=== PATIENT | female | born 1940 | race Two or more races ===

== ENCOUNTER 2024-06-11 06:24 | Inpatient (IN) | payer OTHER, MEDICAID ==
[~2024-06-11] VITALS: Ht 162.6 cm; Wt 50.0 kg
[~2024-06-11 06:24] MED LIST: BIMA0.01 EACHEYE; BRIM0.1S3 EACHEYE; CEFD300C2 PO; DORZ2SOL18 EACHEYE; DOXY100C4 PO; HYDR25TA4 PO; LISI2.5T47 PO; PRED10TA PO; PRED1SUS4 RIGHTEYE; TIMO0.5S28 EACHEYE
--- NOTE | 2024-06-11 07:01 | ED.PDOC ---
History of Present Illness HPI Comments 79 y/o F is BIBA for c/o abdominal pain and nausea, today. Per EMS report, patient endorses on unprovoked and sudden onset of non-radiating, LLQ abdominal pain w/associated nausea at around 0000, this morning. Patient is stated by EMS to have been bed-bound and cared for by caretakers since her left-knee Sx she had, recently. Patient reports no additional relevant or pertinent Hx, such as recent sick contact or spoiled food intake. She denies having any vomiting, diarrhea, urinary symptoms, fever, chills, or other associated symptoms or modifiers at this time. Chief Complaint: Nausea/Vomiting Time Seen by MD: 06:10 Reviewed Notes: Nurses Notes, Medications, Allergies Allergies: Coded Allergies: NO KNOWN ALLERGIES (Unverified , 06/11/24) Home Meds Reported Medications Metoprolol Succinate (Metoprolol Succinate Er) 25 Mg Tab, 1 TAB PO DAILY 06/11/24 Aspirin (Aspirin Low Dose) 81 Mg Tab, 1 TAB PO DAILY 06/11/24 Atorvastatin Calcium (ATORVASTATIN CALCIUM) 20 Mg Tab, 1 TAB PO DAILY 06/11/24 Lisinopril (Lisinopril) 10 Mg Tab, 1 TAB PO DAILY 06/11/24 Information Source: Patient, Emergency Med Personnel Mode of Arrival: EMS Severity: Moderate Timing: Hours Duration: Since onset Prehospital treatment: 12 Lead EKG, Transportation Maintenance Operator Past Medical History PAST MEDICAL HISTORY: Arthritis, HTN Past Medical History (Other): unspecified "heart problems" Surgical History (Other): left-knee Sx FRONT MAN History: Denies all FRONT MAN Hx Family History Family History: Unknown Social History Smoker: Non-Smoker Alcohol: Denies ETOH Use Drugs: Denies Drug Use Lives In: Home, Assisted Care Gastrointestinal: reports: abdominal pain, nausea All Other Systems: Reviewed and Negative (negative unless otherwise stated above or in HPI) Physical Exam General Appearance: Moderate Distress HEENT: Normal ENT Inspection, Pharynx Normal, TMs Normal Neck: Full Range of Motion, Non-Tender, Normal, Normal Inspection Respiratory: Chest Non-Tender, Lungs Clear, No Accessory Muscle Use, No Respiratory Distress, Normal Breath Sounds Cardiovascular: No Edema, No JVD, No Murmur, No Gallop, Normal Peripheral Pulses, Regular Rate/Rhythm Breast Exam: Deferred Gastrointestinal: No Organomegaly, Non Tender, No Pulsatile Mass, Normal Bowel Sounds, Soft Genitalia: Deferred Pelvic: Deferred Rectal: Deferred Extremities: Decreased range of motion Musculoskeletal : Apperance: Normal Neurologic: Alert Cerebellar Function: NOT DONE Reflexes: NOT DONE Skin: Normal Color Peripheral Pulses: 3+ Radial (R), 3+ Radial (L) Lymphatic: No Adenopathy Was a procedure done? Was a procedure done?: No Differential Dx Considerations may include: diverticulitis, ovarian torsion, ovarian cysts, PID, UTI X-Ray, Labs, Meds, VS Vital Signs Date Time Temp Pulse Resp B/P (MAP) Pulse Ox O2 Delivery O2 Flow Rate FiO2 06/11/24 10:23 82 12 129/76 (93) 98 06/11/24 06:35 97.5 82 16 139/84 (102) 100 06/11/24 06:27 78 Lab Test 06/11/24 09:40 Range/Units White Blood Count 16.6 H 4.4-10.8 10^3/uL Red Blood Count 5.39 H 4.0-5.20 10^6/uL Hemoglobin 14.7 12.2-16.2 g/dL Hematocrit 45.3 36.0-46.0 % Mean Corpuscular Volume 84.1 80.0-100.0 fL Mean Corpuscular Hemoglobin 27.2 L 28.0-32.0 pg Mean Corpuscular Hemoglobin Concent 32.3 32.0-36.0 g/dL Red Cell Distribution Width 15.4 H 11.8-14.3 % Platelet Count 405 140-450 10^3/uL Mean Platelet Volume 7.9 6.9-10.8 fL Neutrophils (%) (Auto) 92.7 H 37.0-80.0 % Lymphocytes (%) (Auto) 3.3 L 10.0-50.0 % Monocytes (%) (Auto) 3.8 0.0-12.0 % Eosinophils (%) (Auto) 0.0 0.0-7.0 % Basophils (%) (Auto) 0.2 0.0-2.0 % Neutrophils # (Auto) 15.4 H 1.6-8.6 10 ^3/uL Lymphocytes # (Auto) 0.5 0.4-5.4 10 ^3/uL Monocytes # (Auto) 0.6 0-1.3 10 ^3/uL Eosinophils # (Auto) 0 0-0.8 10 ^3/uL Basophils # (Auto) 0 0-0.2 10 ^3/uL Nucleated Red Blood Cells 0.0 % Sodium Level 137 136-145 mmol/L Potassium Level 3.0 L 3.5-5.1 mmol/L Chloride Level 102 98-107 mmol/L Carbon Dioxide Level 22 20-31 mmol/L Anion Gap 13 5-15 Blood Urea Nitrogen 25 H 9-23 mg/dL Creatinine 0.61 0.550-1.02 mg/dL Glomerular Filtration Rate Calc 91 >90 mL/min BUN/Creatinine Ratio 41.0 H 10.0-20.0 Serum Glucose 127 H 74-106 mg/dL Hemoglobin A1c 5.0 <5.7 % A1C Calcium Level 10.4 8.7-10.4 mg/dL Lipase 1140 H 12-53 U/L Current Medications Medications (Trade) Dose Ordered Sig/Cristofer Route Start Time Stop Time Status Last Admin Acetaminophen/ Hydrocodone Bitart ([place] 10/325MG Tab) 1 tab ONCE ONCE PO 06/11/24 12:00 06/11/24 12:01 DC 06/11/24 11:56 Potassium Bicarbonate (Klor-Con/Ef) 50 meq ONCE ONCE PO 06/11/24 12:00 06/11/24 12:01 DC 06/11/24 12:00 Sodium Chloride 1,000 ml @ 1,000 mls/hr Q1H ONCE IV 06/11/24 15:00 06/11/24 15:59 DC 06/11/24 15:00 Ceftriaxone Sodium 50 ml @ 100 mls/hr ONCE ONCE IV 06/11/24 15:00 06/11/24 15:29 DC 06/11/24 16:49 Metronidazole 100 ml @ 100 mls/hr ONCE ONCE IV 06/11/24 15:00 06/11/24 15:59 DC 06/11/24 16:48 Morphine Sulfate 2 mg ONCE ONCE IV 06/11/24 15:00 06/11/24 15:01 DC 06/11/24 16:47 Ondansetron HCl (Zofran) 4 mg ONCE ONCE IV 06/11/24 15:00 06/11/24 15:01 DC 06/11/24 16:46 Patient alert. Bed ridden. Vitals stable. Answering all questions. Has been having abdominal discomfort. Establish intravenous access. Was given fluids. Reviewed her previous visit. Explained to the patient. Continue cardiac monitoring. [place] [id number] Ph: [phone] DIAGNOSTIC IMAGING Diagnostic Imaging Report : [id number] Signed PATIENT: KAIT OLIVAS ACCT: [id number] UNIT: [id number] : 1940 LOC: ER ROOM / BED: / AGE / SEX: 83 / F ADM STATUS: REG ER SERVICE 1152 ORDERING PHYSICIAN: BK PACHECO MD PROCEDURE(s): ABPL - CT AB PEL WO CON-NO ORAL OR IV REASON: colitis ORDER NUMBER(s): [id number], ACCESSION NUMBER(s): [id number] CLINICAL INFORMATION: 83 years old, Female; colitis. TECHNIQUE: Axial CT images of the abdomen and pelvis were obtained without IV contrast. Coronal and sagittal reformatted images were obtained, reviewed, and stored. Evaluation of the parenchymal organs is limited without IV contrast. Evaluation of the bowel and mesentery is limited without oral contrast. All CT scans at this medical facility are performed using dose modulation techniques as appropriate to a performed exam including the following: Automated exposure control was utilized; adjustment of the MA and/or KV according to patient size; and use of iterative reconstruction technique. CTDIvol = 6.33 mGy DLP = 315.55 mGy-cm COMPARISON: None FINDINGS: Examination is limited due to motion artifact, lack of intravenous and oral contrast, and beam hardening artifact from the patient being scanned with arms at sides and left hand overlying the lower abdomen. Lung bases: Small right pleural effusion with overlying atelectasis. Liver: Grossly unremarkable in its noncontrast enhanced appearance. No abnormal density or focal lesion identified. Biliary: Calcified gallstone in the gallbladder. Spleen: Unremarkable. Pancreas: Moderate peripancreatic inflammatory stranding and ill-defined fluid. No definite organized fluid collection adjacent to the pancreas given the limitations of the examination. Adrenal glands: Grossly unremarkable appearance of the right adrenal gland. Left adrenal gland is not well visualized. Kidneys: No hydronephrosis. No renal or ureteral calculi. Aorta/Vascular: Dense atherosclerotic calcification. No abdominal aortic aneurysm. Retroperitoneum: Grossly unremarkable given the limitations of the exam. Bowel/mesentery: No small bowel obstruction. Moderate gastric distension with fluid in the stomach. Appendix is not visualized. There is a large amount of dense stool in the rectum. Inflammatory stranding in the left upper abdomen adjacent to the splenic flexure of the colon, appears to be coursing from the adjacent pancreatic tail. Secondary inflammation of the splenic flexure of the colon not excluded. Pelvic organs: Grossly unremarkable. Bladder: Unremarkable. No mass. Abdominal wall: No mass or hernia. Bones: No acute fracture or suspicious intraosseous lesion. Arthritic changes in the left hip and moderate arthritic changes in the right hip. Multilevel degenerative disc disease throughout the lumbar spine with disc space narrowing, endplate sclerosis, and endplate spurring. IMPRESSION: 1. Limited examination for the reasons described above. 2. Inflammatory changes adjacent to the pancreas, suspected acute pancreatitis in the appropriate clinical setting. 3. There is also stranding adjacent to the splenic flexure of the colon, likely coursing from the adjacent peripancreatic inflammatory changes. Secondary i nflammation of the splenic flexure of the colon not excluded. 4. Large amount of dense stool in the rectum. Fecal impaction not excluded. 5. Cholelithiasis. 6. Small right pleural effusion with overlying atelectasis. 7. Moderate gastric distention with fluid. 8. Additional findings as detailed above. ATED BY: QUAN SMITH DO DICTATED DATE/TIME: 06/11/241339 SIGNED BY: QUAN SMITH DO SIGNED DATE/TIME: 06/11/241339 CC: Time of 1ST Reevaluation: 06:40 Reevaluation 1ST: Unchanged Patient Education/Counseling: Diagnosis, Treatment Family Education/Counseling: No Family Present Additional Information The following tests were ordered, and results were reviewed by me: BMP, CBC, EKG, UA Additional Information was gathered from interviewing the following independent historians: EMT I reviewed and agreed with the following test results read by other providers: CXR I discussed treatment and results with medical personnel Departure 1 Departure Time of Disposition: 07:50 Impression: Primary Impression: Failure to thrive Qualified Codes: R62.7 - Adult failure to thrive Disposition: ADMITTED INPATIENT Admit to: Med Surg Condition: Guarded Critical Care Note Critical Care Time?: No Stability Stability form required: No Heart Score Heart Score: Heart Score Response (Comments) Value History N/A 0 EKG N/A 0 Age N/A 0 Risk Factors N/A 0 Troponin N/A 0 Total 0 I personally scribed for BK PACHECO MD ([email or web address]) on 06/11/24 at 07:01. Electronically submitted by Beni Hamilton ([email or web address]). I personally scribed for BK PACHECO MD ([email or web address]) on 06/11/24 at 16:59. Electronically submitted by Beni Hamilton ([email or web address]). BK PACHECO MD Jun 11, 2024 07:01
--- NOTE | 2024-06-11 09:04 | DVH ---
CHEST RADIOGRAPH Indication: sob Technique: Single frontal view of the chest was obtained Comparison: None FINDINGS: Lines and Tubes: None Lungs: Elevated right hemidiaphragm. No focal consolidation. Pleura: No effusion. No pneumothorax. Cardiomediastinal contours: Tortuous thoracic aorta. The heart is not enlarged. Bones: No acute osseous abnormality. Bilateral glenohumeral joint arthrosis. Gaseous distention of the stomach. IMPRESSION: 1. No acute cardiopulmonary disease.
[2024-06-11 09:50] LABS: Basophils # (auto) 0 10 ^3/uL (0-0.2); Basophils % (auto) 0.2 % (0.0-2.0); Eosinophils # (auto) 0 10 ^3/uL (0-0.8); Hematocrit 45.3 % (36.0-46.0); Hemoglobin 14.7 g/dL (12.2-16.2); Lymphocytes # (auto) 0.5 10 ^3/uL (0.4-5.4); Lymphocytes % (auto) 3.3 % (10.0-50.0); Mean Corpuscular Hemoglobin 27.2 pg (28.0-32.0); Mean Corpuscular Hgb Conc. 32.3 g/dL (32.0-36.0); Mean Corpuscular Volume 84.1 fL (80.0-100.0); Monocytes # (auto) 0.6 10 ^3/uL (0-1.3); Monocytes % (auto) 3.8 % (0.0-12.0); Neutrophils # (auto) 15.4 10 ^3/uL (1.6-8.6); Neutrophils % (auto) 92.7 % (37.0-80.0); Platelet Count (auto) 405 10^3/uL (140-450); Red Blood Cells 5.39 10^6/uL (4.0-5.20); Red Cell Distribution Width 15.4 % (11.8-14.3); White Blood Cell 16.6 10^3/uL (4.4-10.8)
[2024-06-11 10:11] LABS: Chloride 102 mmol/L (98-107); Sodium 137 mmol/L (136-145)
[2024-06-11 10:12] LABS: Anion Gap 13 (5-15); Carbon Dioxide 22 mmol/L (20-31)
[2024-06-11 10:13] LABS: Calcium 10.4 mg/dL (8.7-10.4)
[2024-06-11 10:28] LABS: Blood Urea Nitrogen 25 mg/dL (9-23); Glucose 127 mg/dL (74-106)
[2024-06-11] MEDS: HYDROcodone-ACET 10/325MG TAB PO ONE (11:56)
[2024-06-11] MEDS: POTASSIUM EFFERVESENT TAB 25 MEQ PO ONE (12:00)
--- NOTE | 2024-06-11 13:42 | DVH ---
CLINICAL INFORMATION: 83 years old, Female; colitis. TECHNIQUE: Axial CT images of the abdomen and pelvis were obtained without IV contrast. Coronal and sagittal reformatted images were obtained, reviewed, and stored. Evaluation of the parenchymal organs is limited without IV contrast. Evaluation of the bowel and mesentery is limited without oral contra st. All CT scans at this medical facility are performed using dose modulation techniques as appropria te to a performed exam including the following: Automated exposure control was utilized; adjustment o f the MA and/or KV according to patient size; and use of iterative reconstruction technique. CTDIvol = 6.33 mGy DLP = 315.55 mGy-cm COMPARISON: None FINDINGS: Examination is limited due to motion artifact, lack of intravenous and oral contrast, and b eam hardening artifact from the patient being scanned with arms at sides and left hand overlying the lower abdomen. Lung bases: Small right pleural effusion with overlying atelectasis. Liver: Grossly unremarkable in its noncontrast enhanced appearance. No abnormal density or focal les ion identified. Biliary: Calcified gallstone in the gallbladder. Spleen: Unremarkable. Pancreas: Moderate peripancreatic inflammatory stranding and ill-defined fluid. No definite organized fluid collection adjacent to the pancreas given the limitations of the examination. Adrenal glands: Grossly unremarkable appearance of the right adrenal gland. Left adrenal gland is not well visualized. Kidneys: No hydronephrosis. No renal or ureteral calculi. Aorta/Vascular: Dense atherosclerotic calcification. No abdominal aortic aneurysm. Retroperitoneum: Grossly unremarkable given the limitations of the exam. Bowel/mesentery: No small bowel obstruction. Moderate gastric distension with fluid in the stomach. A ppendix is not visualized. There is a large amount of dense stool in the rectum. Inflammatory strandi ng in the left upper abdomen adjacent to the splenic flexure of the colon, appears to be coursing fro m the adjacent pancreatic tail. Secondary inflammation of the splenic flexure of the colon not exclu ded. Pelvic organs: Grossly unremarkable. Bladder: Unremarkable. No mass. Abdominal wall: No mass or hernia. Bones: No acute fracture or suspicious intraosseous lesion. Arthritic changes in the left hip and mod erate arthritic changes in the right hip. Multilevel degenerative disc disease throughout the lumbar spine with disc space narrowing, endplate sclerosis, and endplate spurring. IMPRESSION: 1. Limited examination for the reasons described above. 2. Inflammatory changes adjacent to the pancreas, suspected acute pancreatitis in the appropriate cli nical setting. 3. There is also stranding adjacent to the splenic flexure of the colon, likely coursing from the adj acent peripancreatic inflammatory changes. Secondary inflammation of the splenic flexure of the colon not excluded. 4. Large amount of dense stool in the rectum. Fecal impaction not excluded. 5. Cholelithiasis. 6. Small right pleural effusion with overlying atelectasis. 7. Moderate gastric distention with fluid. 8. Additional findings as detailed above.
[2024-06-11] MEDS: SODIUM CHLORIDE 0.9% 1,000 ML IV ONE (15:00)
[2024-06-11] MEDS ORDERED: VANCOMYCIN PER PHARMACY 0 MG IV SCH (15:30)
[2024-06-11] MEDS ORDERED: ACETAMINOPHEN 325 MG TAB PO PRN (15:30)
[2024-06-11] MEDS ORDERED: MORPHINE SULFATE INJ 2 MG/ml SYRG IV PRN (15:30)
[2024-06-11] MEDS ORDERED: ATOR20TA50 PO (15:41)
[2024-06-11] MEDS ORDERED: LISI10TA34 PO (15:41)
[2024-06-11] MEDS ORDERED: ASPI-325 PO (15:41)
[2024-06-11] MEDS ORDERED: METO25TA93 PO (15:41)
--- NOTE | 2024-06-11 15:42 | DVHHP2 ---
History of Present Illness Reason for Visit: Abdominal pain History of Present Illness This 83-year-old female presents in the ED via EMS with a chief complaint abdominal pain. The patient reports abdominal pain associated with nausea and vomiting started last night. Patient is alert and oriented but somehow poor historian. She denies hematemesis, diarrhea, or melena. Past medical history of hypertension, arthritis, and "heart problems" Past Medical History As stated in HPI Past Surgical History Left knee surgery Family History Reviewed, non-contributory to the management of this case. Past Social History The patient lives at home, denies smoking, alcohol or illicit drugs abuse. Review of Systems Constitutional: Yes: Malaise; No: Fever, Chills, Sweats, Weakness, Other Eyes: No: Pain, Vision change, Conjunctivae inflammation, Eyelid inflammation, Other, Redness ENT: No: Ear pain, Ear discharge, Nose pain, Nose discharge, Nose congestion, Mouth pain, Mouth swelling, Throat pain, Throat swelling, Other Respiratory: No: Cough, Dry, Shortness of breath, SOB with excertion, Wheezing, Hemoptysis, Pleuritic Pain, Sputum, Wheezing, Other Cardiovascular: No: Chest Pain, Palpitations, Orthopnea, Paroxysmal Noc. Dyspnea, Edema, Lt Headedness, Other Gastrointestinal: Nausea, Vomiting, Abdominal Pain; No: Diarrhea, Constipation, Melena, Hematochezia, Other Genitourinary: No Dysuria, No Frequency, No Incontinence, No Hematuria, No Retention, No Other Musculoskeletal: No: other, neck pain, shoulder pain, arm pain, back pain, hand pain, leg pain, foot pain Skin: Lesions, Other (Left knee open wound); No: Rash, Jaundice, Bruising Neurological: Numbness, Incoordination, Change in speech, Confusion, Seizures; No: Weakness, Other Allergies: Coded Allergies: NO KNOWN ALLERGIES (Unverified , 06/11/24) Exam Vital Signs Vital Signs Date Time Temp Pulse Resp B/P (MAP) Pulse Ox O2 Delivery O2 Flow Rate FiO2 06/11/24 10:23 82 12 129/76 (93) 98 06/11/24 06:35 97.5 General Appearance: Alert, Cooperative, mild distress, Other (Alert and oriented x2, somehow confused) HEENT: Atraumatic, PERRLA, EOMI, Mucous membr. moist/pink Respiratory: Clear to auscultation, Normal air movement Cardiovascular: Regular rate, Normal S1, Normal S2 Abdominal: Normal bowel sounds, Soft, Other (Mild tenderness) Extremities: Other (Left knee open wound, ? Surgical wound) Psych/Mental Status: Mental status NL Labs/Xrays Labs Test 06/11/24 09:40 Range/Units White Blood Count 16.6 H 4.4-10.8 10^3/uL Red Blood Count 5.39 H 4.0-5.20 10^6/uL Hemoglobin 14.7 12.2-16.2 g/dL Hematocrit 45.3 36.0-46.0 % Mean Corpuscular Volume 84.1 80.0-100.0 fL Mean Corpuscular Hemoglobin 27.2 L 28.0-32.0 pg Mean Corpuscular Hemoglobin Concent 32.3 32.0-36.0 g/dL Red Cell Distribution Width 15.4 H 11.8-14.3 % Platelet Count 405 140-450 10^3/uL Mean Platelet Volume 7.9 6.9-10.8 fL Neutrophils (%) (Auto) 92.7 H 37.0-80.0 % Lymphocytes (%) (Auto) 3.3 L 10.0-50.0 % Monocytes (%) (Auto) 3.8 0.0-12.0 % Eosinophils (%) (Auto) 0.0 0.0-7.0 % Basophils (%) (Auto) 0.2 0.0-2.0 % Neutrophils # (Auto) 15.4 H 1.6-8.6 10 ^3/uL Lymphocytes # (Auto) 0.5 0.4-5.4 10 ^3/uL Monocytes # (Auto) 0.6 0-1.3 10 ^3/uL Eosinophils # (Auto) 0 0-0.8 10 ^3/uL Basophils # (Auto) 0 0-0.2 10 ^3/uL Nucleated Red Blood Cells 0.0 % Sodium Level 137 136-145 mmol/L Potassium Level 3.0 L 3.5-5.1 mmol/L Chloride Level 102 98-107 mmol/L Carbon Dioxide Level 22 20-31 mmol/L Anion Gap 13 5-15 Blood Urea Nitrogen 25 H 9-23 mg/dL Creatinine 0.61 0.550-1.02 mg/dL Glomerular Filtration Rate Calc 91 >90 mL/min BUN/Creatinine Ratio 41.0 H 10.0-20.0 Serum Glucose 127 H 74-106 mg/dL Calcium Level 10.4 8.7-10.4 mg/dL PROCEDURE(s): ABPL - CT AB PEL WO CON-NO ORAL OR IV REASON: colitis ORDER NUMBER(s): [id number], ACCESSION NUMBER(s): [id number] CLINICAL INFORMATION: 83 years old, Female; colitis. TECHNIQUE: Axial CT images of the abdomen and pelvis were obtained without IV contrast. Coronal and sagittal reformatted images were obtained, reviewed, and stored. Evaluation of the parenchymal organs is limited without IV contrast. Evaluation of the bowel and mesentery is limited without oral contrast. All CT scans at this medical facility are performed using dose modulation techniques as appropriate to a performed exam including the following: Automated exposure control was utilized; adjustment of the MA and/or KV according to patient size; and use of iterative reconstruction technique. CTDIvol = 6.33 mGy DLP = 315.55 mGy-cm COMPARISON: None FINDINGS: Examination is limited due to motion artifact, lack of intravenous and oral contrast, and beam hardening artifact from the patient being scanned with arms at sides and left hand overlying the lower abdomen. Lung bases: Small right pleural effusion with overlying atelectasis. Liver: Grossly unremarkable in its noncontrast enhanced appearance. No abnormal density or focal lesion identified. Biliary: Calcified gallstone in the gallbladder. Spleen: Unremarkable. Pancreas: Moderate peripancreatic inflammatory stranding and ill-defined fluid. No definite organized fluid collection adjacent to the pancreas given the limitations of the examination. Adrenal glands: Grossly unremarkable appearance of the right adrenal gland. Left adrenal gland is not well visualized. Kidneys: No hydronephrosis. No renal or ureteral calculi. Aorta/Vascular: Dense atherosclerotic calcification. No abdominal aortic aneurysm. Retroperitoneum: Grossly unremarkable given the limitations of the exam. Bowel/mesentery: No small bowel obstruction. Moderate gastric distension with fluid in the stomach. Appendix is not visualized. There is a large amount of dense stool in the rectum. Inflammatory stranding in the left upper abdomen adjacent to the splenic flexure of the colon, appears to be coursing from the adjacent pancreatic tail. Secondary inflammation of the splenic flexure of the colon not excluded. Pelvic organs: Grossly unremarkable. Bladder: Unremarkable. No mass. Abdominal wall: No mass or hernia. Bones: No acute fracture or suspicious intraosseous lesion. Arthritic changes in the left hip and moderate arthritic changes in the right hip. Multilevel degenerative disc disease throughout the lumbar spine with disc space narrowing, endplate sclerosis, and endplate spurring. IMPRESSION: 1. Limited examination for the reasons described above. 2. Inflammatory changes adjacent to the pancreas, suspected acute pancreatitis in the appropriate clinical setting. 3. There is also stranding adjacent to the splenic flexure of the colon, likely coursing from the adjacent peripancreatic inflammatory changes. Secondary inflammation of the splenic flexure of the colon not excluded. 4. Large amount of dense stool in the rectum. Fecal impaction not excluded. 5. Cholelithiasis. 6. Small right pleural effusion with overlying atelectasis. 7. Moderate gastric distention with fluid. Assessment/Plan Assessment/Plan # rule out Sepsis Admit to telemetry unit IV vanco and cefepime Russo cultures IV fluid Check lactic acid # left knee ? Surgical open wound with purulent drainage Wound Care consult--skin surveillance Wound culture # acute abdominal pain # ?acute pancreatitis # rule out cholecystitis # nausea and vomiting NPO PPI Antiemetics IV fluid Ultrasound gallbladder pending # bed confinement Wound Care team for skin surveillance # hypertension Continue with antihypertensive medications # hyperlipidemia Continue with statins DVT and PUD prophylaxis Medical plan discussed with patient Plan discussed with: Patient My Orders Orders - HEIDI BAILEY [employer]CHO[employer] ADVISER Procedure Category Date Status Time * Wound Consult CONS 06/11/24 Verified Blood Culture BETTINA 06/11/24 Verified 15:25 Wound Culture W/ Gs BETTINA 06/11/24 Verified 15:25 Vancomycin Per PHA 06/11/24 Verified Pharmacy 15:30 Admit ADMIT 06/11/24 Verified 15:25 Code Status CODE 06/11/24 Verified 15:25 0.9% Ns 1000 Ml PHA 06/11/24 Verified 15:30 Hydrocodone-Acet PHA 06/11/24 Verified 5/325mg Tab (Hope 15:30 Ondansetron Hcl PHA 06/11/24 Verified (Zofran) 15:30 Fall Risk Precautions [facility] 06/11/[address] 15:25 Complete Blood Count LAB 06/12/24 Verified 04:00 Comprehensive LAB 06/12/24 Verified Metabolic Panel 04:00 Condition: Fair [facility] 06/11/24 Verified 15:25 Enoxaparin Sodium PHA 06/12/24 Verified (Lovenox) 10:00 Acetaminophen Tablet PHA 06/11/24 Verified (Tylenol Tablet) 15:30 Morphine Sulfate PHA 06/11/24 Verified Injection 15:30 Lipase LAB 06/11/24 Verified 15:25 Hemoglobin A1c LAB 06/11/24 Verified 15:25 Lactic Acid W/ Reflex LAB 06/11/24 Verified Order 15:25 Urinalysis LAB 06/11/24 Verified 15:25 Insert Kapoor Catheter [facility] 06/11/24 Verified 15:25 Date of Service: Jun 11, 2024 Billing Provider: HEIDI BAILEY Common Visit Codes: [id number] INP/OBS CARE (HIGH) HEIDI BAILEYP Jun 11, 2024 15:42
[2024-06-11] MEDS: ONDANSETRON HCL 4 MG/2 ML VIAL IV ONE (16:46)
[2024-06-11] MEDS: PANTOPRAZOLE 40 MG/10 ML VIAL INJ IV ONE (16:46)
[2024-06-11] MEDS: MORPHINE SULFATE INJ 2 MG/ml SYRG IV ONE (16:47)
[2024-06-11] MEDS: metroNIDAZOLE 500MG/100ML 100 ML IV ONE (16:48)
[2024-06-11] MEDS: POTASSIUM CHL 20MEQ/100ML 100 ML IV SCH (16:48)
[2024-06-11] MEDS: cefTRIAXone 1GM/50ML D5W 50 ML IV ONE (16:49)
[2024-06-11 17:00] VITALS: PULSE 74; RESP 16; O2SAT 99
[2024-06-11 17:00] LABS: LDL Cholesterol 54 mg/dL (< 100); Triglycerides 73 mg/dL (< 150)
[2024-06-11 17:02] LABS: Cholesterol 125 mg/dL (< 200); HDL Cholesterol 49 mg/dL (40-59)
--- NOTE | 2024-06-11 17:53 | DVH ---
CLINICAL INFORMATION: 83 years old, Female; Acute pancreatitis. TECHNIQUE: Grayscale sonographic imaging of the right upper quadrant of the abdomen was performed, a ssisted by color Doppler techniques. COMPARISON: None FINDINGS: The gallbladder wall measures 2.5 mm in thickness, within normal limits. Shadowing galls tone visualized in the gallbladder. The common bile duct measures 6.4 mm in diameter, within normal limits. Portions of the left hepatic lobe are not visualized due to bowel gas. Coarsened liver echotexture. The pancreas is completely obscured by bowel gas. The right kidney measures 7.1cm., although incompletely visualized. There is no hydronephrosis. Vis ualized portions of the right kidney are grossly unremarkable. IMPRESSION: 1. Limited examination due to extensive bowel gas. The pancreas and portions of the left hepatic lobe right kidney are not visualized. 2. Cholelithiasis. No sonographic evidence of acute cholecystitis.
[2024-06-11] MEDS: VANCOMYCIN 1GM/250ML KIT 250 ML IV ONE (18:00)
[2024-06-11] MEDS: SODIUM CHLORIDE 0.9% 1,000 ML IV SCH (19:30)
[2024-06-11 21:18] LABS: Urine Bacteria None Seen /hpf (None Seen)
[2024-06-11] MEDS: CEFEPIME 1GM/ 50ML 50 ML IV SCH (21:37)
[2024-06-11 21:43] LABS: Urine Blood Negative /uL (Negative); Urine Clarity Turbid (Clear); Urine Color Yellow (Yellow); Urine Hyaline Cast FEW /lpf (0 - 2); Urine Protein, UAD TRACE (Negative); Urine Specific Gravity 1.022 (1.001-1.035); Urine Squamous Epithelial Cell FEW /hpf (<5); Urine Urobilinogen Normal (Negative); Urine WBC 2 /hpf (0 - 5)
[2024-06-11] MEDS: ATORVASTATIN 20 MG TAB PO SCH (22:00)
[2024-06-11 22:53] VITALS: BP 148/72; PULSE 72; RESP 20; TEMP 97.6; O2SAT 100
[2024-06-11 22:54] VITALS: BP 148/72; PULSE 72; RESP 20; TEMP 97.6; O2SAT 100
[2024-06-12] VITALS (8 sets, daily range): BP systolic 117–149; BP diastolic 57–65; PULSE 79–108; RESP 16–20; TEMP 97.5–99.1; O2SAT 94–100
[2024-06-12 07:20] LABS: Basophils # (auto) 0 10 ^3/uL (0-0.2); Basophils % (auto) 0.1 % (0.0-2.0); Eosinophils # (auto) 0 10 ^3/uL (0-0.8); Hematocrit 39.2 % (36.0-46.0); Hemoglobin 12.6 g/dL (12.2-16.2); Lymphocytes # (auto) 0.8 10 ^3/uL (0.4-5.4); Lymphocytes % (auto) 4.1 % (10.0-50.0); Mean Corpuscular Hemoglobin 27.3 pg (28.0-32.0); Mean Corpuscular Hgb Conc. 32.3 g/dL (32.0-36.0); Mean Corpuscular Volume 84.7 fL (80.0-100.0); Monocytes # (auto) 1.4 10 ^3/uL (0-1.3); Monocytes % (auto) 7.1 % (0.0-12.0); Neutrophils % (auto) 88.7 % (37.0-80.0); Platelet Count (auto) 385 10^3/uL (140-450); Red Blood Cells 4.62 10^6/uL (4.0-5.20); Red Cell Distribution Width 15.4 % (11.8-14.3); White Blood Cell 19.1 10^3/uL (4.4-10.8)
[2024-06-12 08:09] LABS: Anion Gap 9 (5-15); BUN/Creatinine Ratio 49.1 (10.0-20.0); Calcium 9.3 mg/dL (8.7-10.4); Carbon Dioxide 22 mmol/L (20-31); Sodium 138 mmol/L (136-145)
[2024-06-12 08:10] LABS: Alanine Aminotransferase < 9 U/L (7-40); Alkaline Phosphatase 116 U/L (46-116); Blood Urea Nitrogen 27 mg/dL (9-23); Chloride 107 mmol/L (98-107); Glucose 69 mg/dL (74-106); Potassium 5.3 mmol/L (3.5-5.1)
[2024-06-12 08:11] LABS: Albumin 3.2 g/dL (3.2-4.8); Aspartate Aminotransferase 25 U/L (13-40); Bilirubin, Total 0.9 mg/dL (0.2-1.0); Total Protein 6.8 g/dL (5.7-8.2)
[2024-06-12] MEDS: PANTOPRAZOLE 40 MG/10 ML VIAL INJ IV SCH (11:51)
[2024-06-12] MEDS: LISINOPRIL 5 MG TAB PO SCH (11:52)
[2024-06-12] MEDS: METOPROLOL SUCCINATE XL 50 MG TAB PO SCH (11:52)
[2024-06-12] MEDS: ASPirin-EC 81 mg tab PO SCH (11:52)
[2024-06-12] MEDS: ENOXAPARIN SOD 30 MG/0.3 ML SYRINGE SC SCH (11:53)
[2024-06-12] MEDS: VANCOMYCIN 500mg/100mL 100 ML IV SCH (14:19)
[2024-06-12] MEDS ORDERED: MORPHINE SULFATE INJ 2 MG/ml SYRG IV PRN (17:15)
--- NOTE | 2024-06-12 17:20 | DVHPN2 ---
Progress Note Date Seen: Jun 12, 2024 Medical Necessity Reason Pt with a Central, PICC or Fol: No Subjective Patient reports: No new complaints Review of Systems: HEENT:Normal, CVS:Normal, RESPIRATORY:Normal, GI:Normal, :Normal, MSK:Normal, NEURO:Normal Objective vital signs Vital Sign Date Time Temp Pulse Resp B/P (MAP) Pulse Ox O2 Delivery O2 Flow Rate FiO2 06/12/24 12:53 98.4 108 18 125/64 (84) 99 98.4 06/12/24 08:00 Room Air* 0 21 Total Intake and Output 06/11/24 06/11/24 06/12/24 15:00 23:00 07:00 Intake Total 900 ml 0 ml Output Total 200 ml Balance 900 ml -200 ml medications Current Medications Medications Dose Ordered Sig/Cristofer Route Start Time Stop Time Status Last Admin Dose Admin Sodium Chloride 1,000 ml @ 75 mls/hr [id number] IV 06/11/24 15:30 06/12/24 14:19 75 MLS/HR Acetaminophen/ Hydrocodone Bitart 1 tab Q4HP PRN PO 06/11/24 15:30 Ondansetron HCl 4 mg Q4HP PRN IV 06/11/24 15:30 Enoxaparin Sodium 30 mg DAILY SC 06/12/24 10:00 06/12/24 11:53 30 MG Acetaminophen 650 mg Q6HP PRN PO 06/11/24 15:30 Pantoprazole Sodium 40 mg DAILY IV 06/12/24 10:00 06/12/24 11:51 40 MG Morphine Sulfate 1 mg Q4HPRN PRN IV 06/12/24 17:15 Methylprednisolone Sodium Succinate 40 mg DAILY IV 06/13/24 10:00 Piperacillin Sod/ Tazobactam Sod 100 ml @ 25 mls/hr Q8HR IV 06/12/24 22:00 Metoprolol Tartrate 25 mg BID PO 06/12/24 22:00 Examination: GENERAL:Normal, HEENT:Normal, NECK:Normal, LUNGS:Normal, CVS:Normal, ABDOMEN:Normal, MSK:Normal, SKIN:Normal, NEURO:Normal, :Normal laboratory and microbiology Laboratory Tests 06/12/24 06:10 Test 06/12/24 06:10 Range/Units Serum Glucose 69 L 74-106 mg/dL Microbiology Date/Time Source Procedure Growth Status 06/11/24 16:00 Blood Blood Culture - Preliminary NO GROWTH AFTER 24 HOURS OF INCUBATION. Resulted Problem List/Assessment/Plan Problem List/Assessment/Plan #1 abd pain with gallstones/ acute pancreatitis: ivf, iv antibiotics, surg eval, ppi #2 RA: cont steroids #3 htn #4 h/o cad/stent: echo #5 glaucoma #6 fecal impaction #7 functional quadriplegia- bed bound long dw daughter Shira- explained plan of care advance care plan- full code- time spent 19 mins Plan discussed with: Patient, Daughter My Orders My Orders Orders - RYAN CORRAL MD Procedure Category Date Status Time Morphine Sulfate PHA 06/12/24 In Process Injection 17:15 * Surgical Consult CONS 06/12/24 Transmitted Methylprednisolone PHA 06/13/24 In Process Sod Succ (Solu Medrol 10:00 Potassium LAB 06/12/24 Logged 17:04 Piperacillin-Tazob PHA 06/12/24 In Process 3.375gm (Zosyn 3.375g 22:00 Complete Blood Count LAB 06/13/24 Verified 06:00 Comprehensive LAB 06/13/24 Verified Metabolic Panel 06:00 PTPTT LAB 06/13/24 Verified 04:00 * Adjunct Business Instructor CONS 06/12/24 Transmitted Consult 17:04 Npo (Nothing By DIET 06/12/24 Transmitted Mouth) Diet Dinner Metoprolol Tartrate PHA 06/12/24 In Process Tablet (Lopressor Ta 22:00 Echo 2d Mode Cardiac US 06/12/24 Logged DOP 17:10 Date of Service: Jun 12, 2024 Billing Provider: RYAN CORRAL MD Common Visit Codes: [id number] INP/OBS CARE(HIGH) Secondary Visit Codes: [id number] CARE PLAN 30 MINUTES RYAN CORRAL MD Jun 12, 2024 17:20
[2024-06-12] MEDS ORDERED: CEFEPIME 1GM/ 50ML 50 ML IV SCH (18:00)
[2024-06-12] MEDS: methylPREDNISolone SOD SUCC 40 MG/ML VL IV ONE (18:31)
[2024-06-12] MEDS: DORZOLAMIDE HCL 2% OPTH(EYE) SOL 10ML EACHEYE SCH (22:00)
[2024-06-12] MEDS: PIPERACILLIN-TAZOB 3.375GM 100 ML IV SCH (22:06)
[2024-06-12] MEDS: DOCUSATE SOD 100 MG CAP PO SCH (22:06)
[2024-06-12] MEDS: METOPROLOL TARTRATE 25 MG TAB PO SCH (22:08)
[2024-06-12] MEDS: BRIMONIDINE 0.2% OPTH Soln 5ml EACHEYE SCH (22:53)
[2024-06-12] MEDS: LATANOPROST 0.005 % OPTH(EYE) SOL 2.5ML EACHEYE SCH (22:53)
[2024-06-13] VITALS (8 sets, daily range): BP systolic 89–118; BP diastolic 45–64; PULSE 60–91; RESP 18–20; TEMP 97.6–98.3; O2SAT 94–100
[2024-06-13] MEDS ORDERED: FLEET ENEMA(ADULT) 135 ML PR ONE (01:00)
[2024-06-13] MEDS: TIMOLOL MAL 0.5% OPTH(EYE) SOL 5ML EACHEYE SCH (06:18)
[2024-06-13] MEDS ORDERED: prednisoLONE ACETATE 1% OPTH SUSP 5ML RIGHTEYE SCH (10:00)
--- NOTE | 2024-06-13 10:28 | DVHINCON2 ---
Date Seen: Jun 13, 2024 Referring Physician MD Sergey Reason for Consultation HX CAD, cardiac risk stratification History of Present Illness This is an 83-year-old female patient who presents to the emergency room with chief complaint of left lower quadrant abdominal pain and nausea. During this admission it was noted that the patient has gallstones and pancreatitis. Cardiology is now being consulted for cardiac risk stratification pending possible surgical intervention. Initial twelve lead electrocardiogram reveals normal sinus rhythm with right bundle branch block and Q-waves seen in lateral leads. She denies any cardiac symptoms. The patient and her family are somewhat poor historians. Significant past medical history includes coronary artery disease status post multiple PTCAs with multiple stents (patient unsure of exactly how many, reports "2 or 3"), hypertension, dyslipidemia, glaucoma, and bed-bound. Per patient and family report, the patient's last stent placement was approximately in 2020. The patient reports that she follows up with braille teacher Dr. Chaney in the outpatient setting. Past Medical History Past medical history reviewed. No other significant than mentioned above. Past Surgical History Bilateral knee replacements Family History: Patient reports no known family medical history. Family History Family history reviewed. Social History Denies the use of tobacco, alcohol or illicit drugs. Allergies: Coded Allergies: NO KNOWN ALLERGIES (Unverified , 06/11/24) Home Meds Reported Medications Doxycycline Hyclate (Doxycycline Hyclate) 100 Mg Cap, 1 TAB PO BID for 10 Days, #20 06/12/24 Cefdinir (Cefdinir) 300 Mg Cap, 1 CAP PO Q12HR for 10 Days, #20 06/12/24 Timolol Maleate (Timolol Maleate Ophthalmi) 0.5 % Grace, 1 DROP EACHEYE QAM for 100 Days, #10 06/12/24 Prednisone (Prednisone) 10 Mg Tab, 1 TAB PO DAILY for 30 Days, #30 06/12/24 Prednisolone Acetate (Ophth) (Pred Forte) 1 % Elizabeth, 1 DROP RIGHTEYE DAILY for 90 Days, #5 06/12/24 Brimonidine Tartrate (Alphagan P) 0.1 % Grace, 1 DROP EACHEYE TID for 16 Days, #5 06/12/24 Bimatoprost (Lumigan) 0.01 % Grace, 1 DROP EACHEYE QPM for 25 Days, #2.5 06/12/24 Hydrochlorothiazide (Hydrochlorothiazide) 25 Mg Tab, 1 TAB PO DAILY for 90 Days, #90 06/12/24 Lisinopril (Lisinopril) 2.5 Mg Tab, 1 TAB PO DAILY for 30 Days, #30 06/12/24 Metoprolol Succinate (Metoprolol Succinate Er) 25 Mg Tab, 1 TAB PO DAILY 06/11/24 Aspirin (Aspirin Low Dose) 81 Mg Tab, 1 TAB PO DAILY 06/11/24 Atorvastatin Calcium (ATORVASTATIN CALCIUM) 20 Mg Tab, 1 TAB PO DAILY 06/11/24 Discontinued Reported Medications Dorzolamide-Timolol (Dorzolamide Hcl/Timolol M) 1 Ml Grace, 1 DROP EACHEYE BID for 50 Days, #10 06/12/24 Lisinopril (Lisinopril) 10 Mg Tab, 1 TAB PO DAILY 06/11/24 Home Meds Home medications reviewed. Current Medications Current Medications Medications (Trade) Dose Ordered Sig/Cristofer Route PRN Reason Start Time Stop Time Status Last Admin Vancomycin HCl 100 ml @ 200 mls/hr Q12H IV 06/12/24 12:00 06/12/24 17:08 DC 06/12/24 14:19 Cefepime HCl 50 ml @ 12.5 mls/hr Q12H IV 06/12/24 18:00 06/12/24 17:08 DC Morphine Sulfate 1 mg Q4HPRN PRN IV SEVERE PAIN (7-10 PAIN SCALE) 06/12/24 17:15 Methylprednisolone Sodium Succinate (Solu Medrol) 40 mg DAILY IV 06/13/24 10:00 Piperacillin Sod/ Tazobactam Sod 100 ml @ 25 mls/hr Q8HR IV 06/12/24 22:00 06/13/24 06:17 Metoprolol Tartrate (Lopressor Tablet) 25 mg BID PO 06/12/24 22:00 06/12/24 22:08 Docusate Sodium (Colace Capsule) 100 mg BID PO 06/12/24 22:00 06/12/24 22:06 Latanoprost (Xalatan) 1 drop HS EACHEYE 06/12/24 22:00 06/12/24 22:53 Brimonidine Tartrate (ALPHAGAN 0.2% OPTH Soln) 1 drop TID EACHEYE 06/12/24 22:00 06/13/24 06:18 Dorzolamide HCl (Trusopt 2% Opthalmic) 1 drop BID EACHEYE 06/12/24 22:00 Prednisolone Acetate (Pred Forte) 1 drop DAILY RIGHTEYE 06/13/24 10:00 Timolol Maleate (Timoptic 0.5%) 1 drop QAM EACHEYE 06/13/24 07:00 06/13/24 06:18 Review of Systems Constitutional: No symptom reported Ears, Nose, & Throat: No symptom reported Eyes: No symptom reported Neurological: No symptoms reported Pulmonary/Respiratory: No symptoms reported Cardiovascular: No symptom reported Gastrointestinal: Left lower quadrant abdominal pain, nausea Genitourinary: No symptom reported Musculoskeletal: No symptom reported Skin: No symptom reported Psychiatric: No symptom reported Endocrine: No symptom reported Hematologic/Lymphatic: No symptom reported Vital Signs Vital Signs Date Time Temp Pulse Resp B/P (MAP) Pulse Ox O2 Delivery O2 Flow Rate FiO2 06/13/24 08:47 97.6 71 18 116/64 (81) 99 97.6 06/12/24 20:00 Room Air* 0 21 Physical Exam General Appearance: Cooperative. Well-developed. Well-nourished. No acute distress. Pulmonary/Respiratory: Clear, bilateral breaths sounds. Cardiovascular/Chest: Regular rate and rhythm. Peripheral Pulses: 2+ Radial (R). 2+ Radial (L). 2+ Pedal (R). 2+ Pedal (L) Abdominal Exam: Normal bowel sounds. Ankle Exam: Negative ankle edema Lower extremities: Negative lower extremity edema Neuro/Mental Status: A/OX3, coherent. Thoughts/Psych: Normal thought pattern. Appropriate mood and affect. Good judgment and insight. Appearance: No acute distress. Skin Exam: Normal inspection. Normal color. Warm and dry. Labs/Diagnostic Data Labs Test 06/12/24 18:57 06/12/24 06:10 06/11/24 20:50 06/11/24 16:35 Range/Units Potassium Level 4.3 3.5-5.1 mmol/L White Blood Count 19.1 H 4.4-10.8 10^3/uL Red Blood Count 4.62 4.0-5.20 10^6/uL Hemoglobin 12.6 12.2-16.2 g/dL Hematocrit 39.2 # 36.0-46.0 % Mean Corpuscular Volume 84.7 80.0-100.0 fL Mean Corpuscular Hemoglobin 27.3 L 28.0-32.0 pg Mean Corpuscular Hemoglobin Concent 32.3 32.0-36.0 g/dL Red Cell Distribution Width 15.4 H 11.8-14.3 % Platelet Count 385 140-450 10^3/uL Mean Platelet Volume 8.4 6.9-10.8 fL Neutrophils (%) (Auto) 88.7 H 37.0-80.0 % Lymphocytes (%) (Auto) 4.1 L 10.0-50.0 % Monocytes (%) (Auto) 7.1 0.0-12.0 % Eosinophils (%) (Auto) 0.0 0.0-7.0 % Basophils (%) (Auto) 0.1 0.0-2.0 % Neutrophils # (Auto) 17.0 H 1.6-8.6 10 ^3/uL Lymphocytes # (Auto) 0.8 0.4-5.4 10 ^3/uL Monocytes # (Auto) 1.4 H 0-1.3 10 ^3/uL Eosinophils # (Auto) 0 0-0.8 10 ^3/uL Basophils # (Auto) 0 0-0.2 10 ^3/uL Nucleated Red Blood Cells 0.0 % Sodium Level 138 136-145 mmol/L Chloride Level 107 98-107 mmol/L Carbon Dioxide Level 22 20-31 mmol/L Anion Gap 9 5-15 Blood Urea Nitrogen 27 H 9-23 mg/dL Creatinine 0.55 0.550-1.02 mg/dL Glomerular Filtration Rate Calc 91 >90 mL/min BUN/Creatinine Ratio 49.1 H 10.0-20.0 Serum Glucose 69 L 74-106 mg/dL Calcium Level 9.3 8.7-10.4 mg/dL Total Bilirubin 0.9 0.2-1.0 mg/dL Aspartate Amino Transferase (AST) 25 13-40 U/L Alanine Aminotransferase (ALT) < 9 7-40 U/L Alkaline Phosphatase 116 46-116 U/L Total Protein 6.8 5.7-8.2 g/dL Albumin 3.2 3.2-4.8 g/dL Random Vancomycin Level 14.3 H 5-10 ug/mL Urine Color Yellow Yellow Urine Clarity Turbid H Clear Urine pH 5.0 5.0-9.0 Urine Specific [place] 1.022 1.001-1.035 Urine Protein Trace H Negative Urine Ketones Trace Negative Urine Blood Negative Negative /uL Urine Nitrite Negative Negative Urine Bilirubin Negative Negative Urine Urobilinogen Normal Negative mg/dL Urine Leukocyte Esterase Negative Negative /uL Urine RBC 1 0 - 4 /hpf Urine WBC 2 0 - 5 /hpf Urine Squamous Epithelial Cells Few <5 /hpf Urine Bacteria None seen None Seen /hpf Urine Hyaline Casts Few 0 - 2 /lpf Urine Glucose Normal Normal mg/dL Triglycerides Level 73 < 150 mg/dL Cholesterol Level 125 < 200 mg/dL LDL Cholesterol 54 < 100 mg/dL HDL Cholesterol 49 40-59 mg/dL Test 06/11/24 16:00 06/11/24 09:40 Range/Units Lactic Acid Level 2.0 0.4-2.0 mmol/L Hemoglobin A1c 5.0 <5.7 % A1C Lipase 1140 H 12-53 U/L Microbiology Date/Time Source Procedure Growth Status 06/11/24 16:00 Blood Blood Culture - Preliminary NO GROWTH AFTER 24 HOURS OF INCUBATION. Resulted Assessment Preprocedural cardiovascular examination Coronary artery disease status post multiple PTCAs X multiple DANNY (on ASA) Hypertension Dyslipidemia Gallstones Acute pancreatitis Glaucoma Bed-bound Plan/Recommendation We will continue with following plan/recommendations (Dr. Keene): Transthoracic echocardiogram reveals EF 55-60%, grade 2 diastolic dysfunction. Chest x-ray done on this admission shows no acute cardiopulmonary disease. Revised cardiac risk index (Royer criteria): 1 point (6.0%, risk of major cardiac event). Cardiac symptoms have been ruled out. The patient does have an underlying history of coronary artery disease. Prior to admission, the patient reports a poor functional capacity given that she is bed ridden at home. Per Cardiology standpoint, the patient is at an acceptable risk for moderate risk surgery. We will recommend continuation of single antiplatelet therapy (As pirin) without interruption. There is no additional cardiac workup indicated prior to surgery. Thank you for allowing us to care for this patient. Please call with any questions or concerns. Critical care time spent: 40 minutes This medical document was created using an electronic medical record system with voice recognition software and computerized dictation system. Although this document has been carefully reviewed, there might still be some phonetic and typographical errors. Occasional wrong-word or ``sound-alike substitutions may have occurred due to the inherent limitations of voice recognition software. These areas are purely typographical due to imperfections of the software programs and do not reflect any compromise in the patient's medical care. Please read the chart carefully and recognize, using context, where these substitutions have occurred. Plan discussed with: Patient Date of Service: Jun 13, 2024 Billing Provider: RENATO KEENE MD Cardiology Common Codes: [id number] INP/OBS CARE (High) Cardiology Consultation Codes: [id number] CONSULT <45MIN ALEX SIM Jun 13, 2024 10:28
--- NOTE | 2024-06-13 10:47 | DVHINCON2 ---
Date of service: Jun 13, 2024 History of Present Illness 83-year-old female complaining of five day history of epigastric abdominal pain associated with nausea and vomiting. Patient denies any fevers or chills. However today patient denies any abdominal pain. Past Medical History Hypertension. Rheumatoid arthritis. Unclear cardiac problem. Past Surgical History No abdominal surgeries Family History: Patient reports no known family medical history. Family History Noncontributory Social History Denies alcohol, tobacco, IV drug use Allergies: Coded Allergies: NO KNOWN ALLERGIES (Unverified , 06/11/24) Home Meds Reported Medications Doxycycline Hyclate (Doxycycline Hyclate) 100 Mg Cap, 1 TAB PO BID for 10 Days, #20 06/12/24 Cefdinir (Cefdinir) 300 Mg Cap, 1 CAP PO Q12HR for 10 Days, #20 06/12/24 Timolol Maleate (Timolol Maleate Ophthalmi) 0.5 % Grace, 1 DROP EACHEYE QAM for 100 Days, #10 06/12/24 Prednisone (Prednisone) 10 Mg Tab, 1 TAB PO DAILY for 30 Days, #30 06/12/24 Prednisolone Acetate (Ophth) (Pred Forte) 1 % Elizabeth, 1 DROP RIGHTEYE DAILY for 90 Days, #5 06/12/24 Brimonidine Tartrate (Alphagan P) 0.1 % Grace, 1 DROP EACHEYE TID for 16 Days, #5 06/12/24 Bimatoprost (Lumigan) 0.01 % Grace, 1 DROP EACHEYE QPM for 25 Days, #2.5 06/12/24 Hydrochlorothiazide (Hydrochlorothiazide) 25 Mg Tab, 1 TAB PO DAILY for 90 Days, #90 06/12/24 Lisinopril (Lisinopril) 2.5 Mg Tab, 1 TAB PO DAILY for 30 Days, #30 06/12/24 Metoprolol Succinate (Metoprolol Succinate Er) 25 Mg Tab, 1 TAB PO DAILY 06/11/24 Aspirin (Aspirin Low Dose) 81 Mg Tab, 1 TAB PO DAILY 06/11/24 Atorvastatin Calcium (ATORVASTATIN CALCIUM) 20 Mg Tab, 1 TAB PO DAILY 06/11/24 Discontinued Reported Medications Dorzolamide-Timolol (Dorzolamide Hcl/Timolol M) 1 Ml Grace, 1 DROP EACHEYE BID for 50 Days, #10 06/12/24 Lisinopril (Lisinopril) 10 Mg Tab, 1 TAB PO DAILY 06/11/24 Current Medications Current Medications Medications (Trade) Dose Ordered Sig/Cristofer Route PRN Reason Start Time Stop Time Status Last Admin Vancomycin HCl 100 ml @ 200 mls/hr Q12H IV 06/12/24 12:00 06/12/24 17:08 DC 06/12/24 14:19 Cefepime HCl 50 ml @ 12.5 mls/hr Q12H IV 06/12/24 18:00 06/12/24 17:08 DC Morphine Sulfate 1 mg Q4HPRN PRN IV SEVERE PAIN (7-10 PAIN SCALE) 06/12/24 17:15 Methylprednisolone Sodium Succinate (Solu Medrol) 40 mg DAILY IV 06/13/24 10:00 Piperacillin Sod/ Tazobactam Sod 100 ml @ 25 mls/hr Q8HR IV 06/12/24 22:00 06/13/24 06:17 Metoprolol Tartrate (Lopressor Tablet) 25 mg BID PO 06/12/24 22:00 06/12/24 22:08 Docusate Sodium (Colace Capsule) 100 mg BID PO 06/12/24 22:00 06/12/24 22:06 Latanoprost (Xalatan) 1 drop HS EACHEYE 06/12/24 22:00 06/12/24 22:53 Brimonidine Tartrate (ALPHAGAN 0.2% OPTH Soln) 1 drop TID EACHEYE 06/12/24 22:00 06/13/24 06:18 Dorzolamide HCl (Trusopt 2% Opthalmic) 1 drop BID EACHEYE 06/12/24 22:00 Prednisolone Acetate (Pred Forte) 1 drop DAILY RIGHTEYE 06/13/24 10:00 Timolol Maleate (Timoptic 0.5%) 1 drop QAM EACHEYE 06/13/24 07:00 06/13/24 06:18 Vital Signs Vital Signs Date Time Temp Pulse Resp B/P (MAP) Pulse Ox O2 Delivery O2 Flow Rate FiO2 06/13/24 08:47 97.6 71 18 116/64 (81) 99 97.6 06/12/24 20:00 Room Air* 0 21 Physical Exam GEN: Age-appropriate female in no acute distress. Alert. HEENT: Normocephalic atraumatic. Moist mucous membranes. Anicteric sclerae. CV: RRR Respiratory: CTAB ABD: Soft. Nontender nondistended. Abdominal ultrasound: Cholelithiasis. Normal gallbladder wall thickness. Common bile duct is 6.4 mm which is normal. CT of the abdomen and pelvis: Peripancreatic inflammation with fluid consistent with pancreatitis. Large amount of stool in the colon. Labs/Diagnostic Data Labs Test 06/12/24 18:57 06/12/24 06:10 06/11/24 20:50 06/11/24 16:35 Range/Units Potassium Level 4.3 3.5-5.1 mmol/L White Blood Count 19.1 H 4.4-10.8 10^3/uL Red Blood Count 4.62 4.0-5.20 10^6/uL Hemoglobin 12.6 12.2-16.2 g/dL Hematocrit 39.2 # 36.0-46.0 % Mean Corpuscular Volume 84.7 80.0-100.0 fL Mean Corpuscular Hemoglobin 27.3 L 28.0-32.0 pg Mean Corpuscular Hemoglobin Concent 32.3 32.0-36.0 g/dL Red Cell Distribution Width 15.4 H 11.8-14.3 % Platelet Count 385 140-450 10^3/uL Mean Platelet Volume 8.4 6.9-10.8 fL Neutrophils (%) (Auto) 88.7 H 37.0-80.0 % Lymphocytes (%) (Auto) 4.1 L 10.0-50.0 % Monocytes (%) (Auto) 7.1 0.0-12.0 % Eosinophils (%) (Auto) 0.0 0.0-7.0 % Basophils (%) (Auto) 0.1 0.0-2.0 % Neutrophils # (Auto) 17.0 H 1.6-8.6 10 ^3/uL Lymphocytes # (Auto) 0.8 0.4-5.4 10 ^3/uL Monocytes # (Auto) 1.4 H 0-1.3 10 ^3/uL Eosinophils # (Auto) 0 0-0.8 10 ^3/uL Basophils # (Auto) 0 0-0.2 10 ^3/uL Nucleated Red Blood Cells 0.0 % Sodium Level 138 136-145 mmol/L Chloride Level 107 98-107 mmol/L Carbon Dioxide Level 22 20-31 mmol/L Anion Gap 9 5-15 Blood Urea Nitrogen 27 H 9-23 mg/dL Creatinine 0.55 0.550-1.02 mg/dL Glomerular Filtration Rate Calc 91 >90 mL/min BUN/Creatinine Ratio 49.1 H 10.0-20.0 Serum Glucose 69 L 74-106 mg/dL Calcium Level 9.3 8.7-10.4 mg/dL Total Bilirubin 0.9 0.2-1.0 mg/dL Aspartate Amino Transferase (AST) 25 13-40 U/L Alanine Aminotransferase (ALT) < 9 7-40 U/L Alkaline Phosphatase 116 46-116 U/L Total Protein 6.8 5.7-8.2 g/dL Albumin 3.2 3.2-4.8 g/dL Random Vancomycin Level 14.3 H 5-10 ug/mL Urine Color Yellow Yellow Urine Clarity Turbid H Clear Urine pH 5.0 5.0-9.0 Urine Specific [place] 1.022 1.001-1.035 Urine Protein Trace H Negative Urine Ketones Trace Negative Urine Blood Negative Negative /uL Urine Nitrite Negative Negative Urine Bilirubin Negative Negative Urine Urobilinogen Normal Negative mg/dL Urine Leukocyte Esterase Negative Negative /uL Urine RBC 1 0 - 4 /hpf Urine WBC 2 0 - 5 /hpf Urine Squamous Epithelial Cells Few <5 /hpf Urine Bacteria None seen None Seen /hpf Urine Hyaline Casts Few 0 - 2 /lpf Urine Glucose Normal Normal mg/dL Triglycerides Level 73 < 150 mg/dL Cholesterol Level 125 < 200 mg/dL LDL Cholesterol 54 < 100 mg/dL HDL Cholesterol 49 40-59 mg/dL Test 06/11/24 16:00 06/11/24 09:40 Range/Units Lactic Acid Level 2.0 0.4-2.0 mmol/L Hemoglobin A1c 5.0 <5.7 % A1C Lipase 1140 H 12-53 U/L Microbiology Date/Time Source Procedure Growth Status 06/11/24 16:00 Blood Blood Culture - Preliminary NO GROWTH AFTER 24 HOURS OF INCUBATION. Resulted Assessment 1. Gallstone pancreatitis clinically improving. Plan/Recommendation 1. Discussed the surgery with the patient and the family. As the surgery is done to prevent future recurrence, patient at this time does not want surgery. We will start clear liquid diet and advanced to low fat as tolerated. Plan discussed with: Patient, Daughter DIMA,FRAN Stoner MD Jun 13, 2024 10:47
[2024-06-13 11:45] LABS: Basophils # (auto) 0 10 ^3/uL (0-0.2); Eosinophils # (auto) 0 10 ^3/uL (0-0.8)
[2024-06-13 11:46] LABS: Alkaline Phosphatase 112 U/L (46-116); Anion Gap 9 (5-15); Aspartate Aminotransferase 27 U/L (13-40); BUN/Creatinine Ratio 56.9 (10.0-20.0); Bilirubin, Total 1.1 mg/dL (0.2-1.0); Calcium 8.9 mg/dL (8.7-10.4); Carbon Dioxide 22 mmol/L (20-31); Potassium 4.2 mmol/L (3.5-5.1); Sodium 139 mmol/L (136-145); Total Protein 6.1 g/dL (5.7-8.2)
[2024-06-13 11:47] LABS: Hematocrit 34.2 % (36.0-46.0); Lymphocytes # (auto) 1.3 10 ^3/uL (0.4-5.4); Lymphocytes % (auto) 6.9 % (10.0-50.0); Mean Corpuscular Hemoglobin 26.9 pg (28.0-32.0); Mean Corpuscular Hgb Conc. 32.1 g/dL (32.0-36.0); Mean Corpuscular Volume 83.8 fL (80.0-100.0); Monocytes # (auto) 1.3 10 ^3/uL (0-1.3); Neutrophils % (auto) 86.1 % (37.0-80.0); Nucleated Red Blood Cells % 0.1 %; Platelet Count (auto) 365 10^3/uL (140-450); Red Blood Cells 4.08 10^6/uL (4.0-5.20); Red Cell Distribution Width 15.4 % (11.8-14.3); White Blood Cell 18.6 10^3/uL (4.4-10.8)
[2024-06-13] MEDS: prednisoLONE ACETATE 1% OPTH SUSP 5ML LEFTEYE SCH (11:47)
[2024-06-13 11:48] LABS: Alanine Aminotransferase 9 U/L (7-40); Albumin 2.9 g/dL (3.2-4.8); Blood Urea Nitrogen 33 mg/dL (9-23); Chloride 108 mmol/L (98-107); Glucose 66 mg/dL (74-106)
[2024-06-13] MEDS: methylPREDNISolone SOD SUCC 40 MG/ML VL IV SCH (11:48)
[2024-06-13 11:50] LABS: INR 1.17 (0.9-1.15); Partial Thromboplastin Time 27.3 SEC (24.5-34.5); Prothrombin Time 12.3 sec (9.3-11.8)
[2024-06-13 12:12] LABS: Lipase 77 U/L (12-53)
--- NOTE | 2024-06-13 12:44 | ECG ---
[facility] Test Date: 2024-06-11 Test Time: 06:27:26 Pat Name: KAIT OLIVAS Department: ER Room: 0290 B Gender: F Sprinkler Worker: JOSE ROBERTO : 1940 Requested By: BK PACHECO Order Number: [id number] Reading MD: Sidney Daniels Measurements Intervals [place] Rate: 78 P: 36 MD: 148 QRS: -108 QRSD: 140 T: 9 QT: 428 QTc: 488 Interpretive Statements Sinus arrhythmia Right bundle branch block Lateral infarct, recent Electronically Signed On 06-13-2024 17:54:56 PST by Sidney Daniels Please click the below link to view image of tracing.
--- NOTE | 2024-06-13 13:23 | DVHPN2 ---
Progress Note Date Seen: Jun 13, 2024 Medical Necessity Reason Pt with a Central, PICC or Fol: No Subjective Patient reports: No new complaints Review of Systems: HEENT:Normal, CVS:Normal, RESPIRATORY:Normal, GI:Normal, :Normal, MSK:Normal, NEURO:Normal Objective vital signs Vital Sign Date Time Temp Pulse Resp B/P (MAP) Pulse Ox O2 Delivery O2 Flow Rate FiO2 06/13/24 11:49 60 118/64 06/13/24 08:47 97.6 18 99 97.6 06/12/24 20:00 Room Air* 0 21 Total Intake and Output 06/12/24 06/12/24 06/13/24 15:00 23:00 07:00 Intake Total 350 ml 100 ml Output Total 250 ml 150 ml Balance 100 ml -50 ml medications Current Medications Medications Dose Ordered Sig/Cristofer Route Start Time Stop Time Status Last Admin Dose Admin Sodium Chloride 1,000 ml @ 75 mls/hr [id number] IV 06/11/24 15:30 06/12/24 14:19 75 MLS/HR Acetaminophen/ Hydrocodone Bitart 1 tab Q4HP PRN PO 06/11/24 15:30 Ondansetron HCl 4 mg Q4HP PRN IV 06/11/24 15:30 Enoxaparin Sodium 30 mg DAILY SC 06/12/24 10:00 06/12/24 11:53 30 MG Acetaminophen 650 mg Q6HP PRN PO 06/11/24 15:30 Pantoprazole Sodium 40 mg DAILY IV 06/12/24 10:00 06/13/24 11:48 40 MG Morphine Sulfate 1 mg Q4HPRN PRN IV 06/12/24 17:15 Methylprednisolone Sodium Succinate 40 mg DAILY IV 06/13/24 10:00 06/13/24 11:48 40 MG Metoprolol Tartrate 25 mg BID PO 06/12/24 22:00 06/13/24 11:49 25 MG Docusate Sodium 100 mg BID PO 06/12/24 22:00 06/13/24 11:49 100 MG Timolol Maleate 1 drop QAM EACHEYE 06/13/24 07:00 06/13/24 06:18 1 DROP Prednisolone Acetate 1 drop DAILY LEFTEYE 06/13/24 11:30 06/13/24 11:47 1 DROP Patient Own Medication 1 TID OP 06/13/24 14:00 Piperacillin Sod/ Tazobactam Sod 100 ml @ 25 mls/hr Q8H IV 06/13/24 18:00 Patient Own Medication 1 QPM OP 06/13/24 18:00 Examination: GENERAL:Normal, HEENT:Normal, NECK:Normal, LUNGS:Normal, CVS:Normal, ABDOMEN:Normal, MSK:Normal, MSK:Abnormal (foot/hand rheumatoid deformities), SKIN:Normal, NEURO:Normal, :Normal laboratory and microbiology Laboratory Tests 06/13/24 11:00 Test 06/13/24 11:00 Range/Units Serum Glucose 66 L 74-106 mg/dL Microbiology Date/Time Source Procedure Growth Status 06/11/24 16:00 Blood Blood Culture - Preliminary NO GROWTH AFTER 24 HOURS OF INCUBATION. Resulted Problem List/Assessment/Plan Problem List/Assessment/Plan #1 abd pain with gallstones/ acute pancreatitis: ivf, iv antibiotics, surg eval, ppi #2 RA: cont steroids #3 htn #4 h/o cad/stent: echo #5 glaucoma #6 fecal impaction #7 functional quadriplegia- bed bound long dw daughter Shira- explained plan of care advance care plan- full code- time spent 19 mins Plan discussed with: Patient My Orders My Orders Orders - RYAN CORRAL MD Procedure Category Date Status Time Morphine Sulfate PHA 06/12/24 In Process Injection 17:15 * Surgical Consult CONS 06/12/24 Transmitted Methylprednisolone PHA 06/13/24 In Process Sod Succ (Solu Medrol 10:00 * Handbag Designer CONS 06/12/24 Transmitted Consult 17:04 Metoprolol Tartrate PHA 06/12/24 In Process Tablet (Lopressor Ta 22:00 Tap Water Enema ORDERS 06/12/24 Transmitted 17:20 Docusate Sodium PHA 06/12/24 In Process Capsule (Colace 22:00 Timolol 0.5% Opth PHA 06/13/24 In Process Soln (Timoptic 0.5%) 07:00 Prednisolone Acetate PHA 06/13/24 In Process 1% (Pred Forte) 11:30 Patients Own PHA 06/13/24 In Process Medication 14:00 Piperacillin-Tazob PHA 06/13/24 In Process 3.375gm (Zosyn 3.375g 18:00 Patients Own PHA 06/13/24 In Process Medication 18:00 Date of Service: Jun 13, 2024 Billing Provider: RYAN CORRAL MD Common Visit Codes: [id number] INP/OBS CARE(HIGH) RYAN CORRAL MD Jun 13, 2024 13:23
--- NOTE | 2024-06-13 13:47 | DVHSR ---
APPROVED REPORT EXAM: Two-dimensional and M-mode echocardiogram. Blood Pressure: 89/45 mmHg INDICATION chf RISK FACTORS Height: 5'4, Weight: 110 DIMENSIONS LVDd (3.8-5.7cm)LA (2D)3.8 (1.9-4.0cm)Aortic Root3.7 (2.0-3.7cm) LVDs (2.5-4.0cm)LA (MM) (1.9-4.0cm)Aortic Cusp Exc1.6 (1.5-2.0cm) EF (%) 55.0 (55-70%)Rt. Atrium3.3 (1.9-4.0cm)Asc. Aorta cm Mitral Valve MitralMitral Stenosis E wave0.80m/sMV Mean GR.mmHg A wave1.03m/sMV Peak GR.74mmHg E/A ratio0.82D MVAcm2 DECEL [id number] 1/2 [place] Aortic Valve Aortic ValveAortic Stenosis V11.02m/[place] Mean GR.4mmHg V21.28m/[place] Peak GR.7mmHg LVOT Diameter2.0 (1.8-2.4cm)Doppler AVA2.50cm2 AI P 1/2 Bpny397.77ms Pulmonic Valve V20.83m/s Tricuspid Valve TR Velocity2.62m/s [id number] LEFT VENTRICLE Normal left ventricular size. There is mild sigmoid septal hypertrophy. Ejection fraction is normal and is estimated at 55-60%. There is no regional wall motion abnormalities. There is grade 2 diast olic dysfunction. E to E prime ratio is in the normal range. RIGHT VENTRICLE The right ventricle is of normal size and systolic function. ATRIA Both atria are of normal size. MITRAL VALVE There is mild mitral annular calcification. No significant mitral regurgitation or stenosis. PULMONIC VALVE Likely normal. TRICUSPID VALVE There is mild tricuspid regurgitation. PA systolic pressure is estimated at 35-40 mm Hg. AORTIC VALVE The aortic valve leaflets are mildly sclerotic. There is mild aortic insufficiency. No significant stenosis. GREAT VESSELS Aortic root and proximal ascending aorta are of normal size. PERICARDIAL EFFUSION No significant effusion. The IVC is of normal size and collapses normally with inspiration. Conclusion Normal left ventricular size and systolic function. Ejection fraction estimated at 55-60%. Mild sigmoid septal hypertrophy. Grade II diastolic dysfunction. Normal right ventricular size and systolic function. Sclerotic aortic valve with mild insufficiency. PA systolic pressure is estimated at 35-40 mm Hg No pericardial effusion.
[2024-06-13] MEDS: [UNRECOGNIZED DRUG - OTHER] OP SCH (14:00)
[2024-06-13] MEDS: OPTH OP SCH ×2 (14:00→18:30)
[2024-06-13] MEDS: LUMIGAN 0.01% OP SCH (18:30)
[2024-06-13] MEDS: PIPERACILLIN-TAZOB 3.375GM 100 ML IV SCH (18:31)
[2024-06-14] VITALS (7 sets, daily range): BP systolic 91–119; BP diastolic 51–60; PULSE 62–83; RESP 16–18; TEMP 97.5–98.2; O2SAT 97–99
[2024-06-14 05:41] LABS: Basophils # (auto) 0 10 ^3/uL (0-0.2); Eosinophils # (auto) 0 10 ^3/uL (0-0.8); Hemoglobin 10.8 g/dL (12.2-16.2); Lymphocytes # (auto) 1.4 10 ^3/uL (0.4-5.4); Nucleated Red Blood Cells % 0.1 %
[2024-06-14 05:44] LABS: Alanine Aminotransferase 13 U/L (7-40); Alkaline Phosphatase 102 U/L (46-116); Anion Gap 8 (5-15); Aspartate Aminotransferase 26 U/L (13-40); Calcium 8.7 mg/dL (8.7-10.4); Carbon Dioxide 21 mmol/L (20-31); Potassium 3.9 mmol/L (3.5-5.1); Sodium 136 mmol/L (136-145)
[2024-06-14 05:45] LABS: Bilirubin, Total 0.9 mg/dL (0.2-1.0); Total Protein 5.7 g/dL (5.7-8.2)
[2024-06-14 05:47] LABS: Basophils % (auto) 0.1 % (0.0-2.0); Hematocrit 33.1 % (36.0-46.0); Lymphocytes % (auto) 8.9 % (10.0-50.0); Mean Corpuscular Hgb Conc. 32.5 g/dL (32.0-36.0); Mean Corpuscular Volume 82.9 fL (80.0-100.0); Monocytes # (auto) 1.6 10 ^3/uL (0-1.3); Monocytes % (auto) 10.3 % (0.0-12.0); Neutrophils # (auto) 12.7 10 ^3/uL (1.6-8.6); Neutrophils % (auto) 80.7 % (37.0-80.0); Platelet Count (auto) 362 10^3/uL (140-450); Red Cell Distribution Width 15.2 % (11.8-14.3); White Blood Cell 15.8 10^3/uL (4.4-10.8)
[2024-06-14 05:59] LABS: Albumin 2.7 g/dL (3.2-4.8); Blood Urea Nitrogen 32 mg/dL (9-23); Chloride 107 mmol/L (98-107); Glucose 111 mg/dL (74-106); Lipase 56 U/L (12-53)
--- NOTE | 2024-06-14 09:14 | DVHPN2 ---
Progress Note - Dictate Date Seen: Jun 14, 2024 Medical Necessity Reason Pt with a Central, PICC or Fol: No Subjective E: no major events o/n. c/o left sided abdominal discomfort after meals but now resolved. still doesn't want surgery vital signs Vital Sign Date Time Temp Pulse Resp B/P (MAP) Pulse Ox O2 Delivery O2 Flow Rate FiO2 06/14/24 05:00 97.8 65 18 101/59 (73) 99 97.8 06/13/24 20:00 Room Air* 0 21 Total Intake and Output 06/13/24 06/13/24 06/14/24 15:00 23:00 07:00 Intake Total 850 ml 350 ml Output Total 250 ml 100 ml Balance 600 ml 250 ml medications Current Medications Medications Dose Ordered Sig/Cristofer Route Start Time Stop Time Status Last Admin Dose Admin Sodium Chloride 1,000 ml @ 75 mls/hr [id number] IV 06/11/24 15:30 06/13/24 20:50 75 MLS/HR Acetaminophen/ Hydrocodone Bitart 1 tab Q4HP PRN PO 06/11/24 15:30 Ondansetron HCl 4 mg Q4HP PRN IV 06/11/24 15:30 Enoxaparin Sodium 30 mg DAILY SC 06/12/24 10:00 06/12/24 11:53 30 MG Acetaminophen 650 mg Q6HP PRN PO 06/11/24 15:30 Pantoprazole Sodium 40 mg DAILY IV 06/12/24 10:00 06/13/24 11:48 40 MG Morphine Sulfate 1 mg Q4HPRN PRN IV 06/12/24 17:15 Metoprolol Tartrate 25 mg BID PO 06/12/24 22:00 06/13/24 11:49 25 MG Docusate Sodium 100 mg BID PO 06/12/24 22:00 06/13/24 11:49 100 MG Timolol Maleate 1 drop QAM EACHEYE 06/13/24 07:00 06/14/24 06:41 1 DROP Prednisolone Acetate 1 drop DAILY LEFTEYE 06/13/24 11:30 06/13/24 11:47 1 DROP Patient Own Medication 1 TID OP 06/13/24 14:00 06/14/24 06:00 1 Piperacillin Sod/ Tazobactam Sod 100 ml @ 25 mls/hr Q8H IV 06/13/24 18:00 06/14/24 03:20 25 MLS/HR Patient Own Medication 1 QPM OP 06/13/24 18:00 06/13/24 18:30 1 Prednisone 10 mg DAILY PO 06/14/24 10:00 objective GEN: NAD ABD: soft. NT/ND. laboratory and microbiology Laboratory Tests 06/14/24 05:00 Test 06/14/24 05:00 Range/Units Serum Glucose 111 H 74-106 mg/dL Assessment/Plan A: 1. improving gallstone pancreatitis P: 1. spoke to patient regarding surgery again. per cardiology she is moderate risk. I explained that without surgery, it is possible for recurrent symptoms which may be more severe. however, she still did not want to agree to surgery. cont curr tx. Plan discussed with: Patient FRAN CH MD Jun 14, 2024 09:14
[2024-06-14] MEDS: predniSONE 5 MG TAB PO SCH (11:25)
--- NOTE | 2024-06-14 12:40 | DVHPN2 ---
Progress Note Date Seen: Jun 14, 2024 Medical Necessity Reason Pt with a Central, PICC or Fol: No Subjective Patient reports: No new complaints Review of Systems: HEENT:Normal, CVS:Normal, RESPIRATORY:Normal, GI:Normal, :Normal, MSK:Normal, NEURO:Normal Objective vital signs Vital Sign Date Time Temp Pulse Resp B/P (MAP) Pulse Ox O2 Delivery O2 Flow Rate FiO2 06/14/24 11:20 59 118/61 06/14/24 09:00 97.5 16 97 97.5 06/13/24 20:00 Room Air* 0 21 Total Intake and Output 06/13/24 06/13/24 06/14/24 15:00 23:00 07:00 Intake Total 850 ml 350 ml Output Total 250 ml 100 ml Balance 600 ml 250 ml medications Current Medications Medications Dose Ordered Sig/Cristofer Route Start Time Stop Time Status Last Admin Dose Admin Sodium Chloride 1,000 ml @ 75 mls/hr [id number] IV 06/11/24 15:30 06/13/24 20:50 75 MLS/HR Acetaminophen/ Hydrocodone Bitart 1 tab Q4HP PRN PO 06/11/24 15:30 Ondansetron HCl 4 mg Q4HP PRN IV 06/11/24 15:30 Enoxaparin Sodium 30 mg DAILY SC 06/12/24 10:00 06/12/24 11:53 30 MG Acetaminophen 650 mg Q6HP PRN PO 06/11/24 15:30 Pantoprazole Sodium 40 mg DAILY IV 06/12/24 10:00 06/14/24 11:29 40 MG Morphine Sulfate 1 mg Q4HPRN PRN IV 06/12/24 17:15 Metoprolol Tartrate 25 mg BID PO 06/12/24 22:00 06/13/24 11:49 25 MG Docusate Sodium 100 mg BID PO 06/12/24 22:00 06/14/24 11:26 100 MG Timolol Maleate 1 drop QAM EACHEYE 06/13/24 07:00 06/14/24 06:41 1 DROP Prednisolone Acetate 1 drop DAILY LEFTEYE 06/13/24 11:30 06/14/24 11:25 1 DROP Patient Own Medication 1 TID OP 06/13/24 14:00 06/14/24 06:00 1 Piperacillin Sod/ Tazobactam Sod 100 ml @ 25 mls/hr Q8H IV 06/13/24 18:00 06/14/24 11:25 25 MLS/HR Patient Own Medication 1 QPM OP 06/13/24 18:00 06/13/24 18:30 1 Prednisone 10 mg DAILY PO 06/14/24 10:00 06/14/24 11:25 10 MG Examination: GENERAL:Normal, HEENT:Normal, NECK:Normal, LUNGS:Normal, CVS:Normal, ABDOMEN:Normal, MSK:Normal, SKIN:Normal, NEURO:Normal, :Normal laboratory and microbiology Laboratory Tests 06/14/24 05:00 Test 06/14/24 05:00 Range/Units Serum Glucose 111 H 74-106 mg/dL Microbiology Date/Time Source Procedure Growth Status 06/11/24 16:00 Blood Blood Culture - Preliminary NO GROWTH AFTER 48 HOURS OF INCUBATION. Resulted Problem List/Assessment/Plan Problem List/Assessment/Plan #1 abd pain with gallstones/ acute pancreatitis: ivf, iv antibiotics, ppi #2 RA: cont steroids #3 htn #4 h/o cad/stent: echo #5 glaucoma #6 fecal impaction #7 functional quadriplegia- bed bound long dw daughter Shira- explained plan of care advance care plan- full code- time spent 19 mins Plan discussed with: Patient My Orders My Orders Orders - RYAN CORRAL MD Procedure Category Date Status Time Prednisone Tablet PHA 06/14/24 In Process 10:00 Date of Service: Jun 14, 2024 Billing Provider: RYAN CORRAL MD Common Visit Codes: [id number] INP/OBS CARE(HIGH) RYAN CORRAL MD Jun 14, 2024 12:40
[2024-06-15] VITALS (8 sets, daily range): BP systolic 109–157; BP diastolic 53–68; PULSE 63–90; RESP 14–17; TEMP 97.6–98.5; O2SAT 96–100
[2024-06-15 08:27] LABS: Alanine Aminotransferase 14 U/L (7-40); Alkaline Phosphatase 113 U/L (46-116); Anion Gap 10 (5-15); Aspartate Aminotransferase 35 U/L (13-40); BUN/Creatinine Ratio 40.5 (10.0-20.0); Blood Urea Nitrogen 15 mg/dL (9-23); Potassium 4.1 mmol/L (3.5-5.1); Sodium 138 mmol/L (136-145)
[2024-06-15 08:28] LABS: Total Protein 5.9 g/dL (5.7-8.2)
[2024-06-15 08:29] LABS: Albumin 2.7 g/dL (3.2-4.8); Carbon Dioxide 17 mmol/L (20-31); Chloride 111 mmol/L (98-107); Glucose 64 mg/dL (74-106)
[2024-06-15 09:30] LABS: Lipase 104 U/L (12-53)
[2024-06-15] MEDS: levoFLOXacin 500 MG TAB PO ONE ×2 (10:00→18:16)
--- NOTE | 2024-06-15 13:19 | DVHPN2 ---
Progress Note Date Seen: Jun 15, 2024 Medical Necessity Reason Pt with a Central, PICC or Fol: Yes The following are medically ne: Jefferson Catheter Reason for jefferson catheter: Strict I&O Subjective Patient reports: No new complaints Review of Systems: HEENT:Normal, CVS:Normal, RESPIRATORY:Normal, GI:Normal, :Normal, MSK:Normal, NEURO:Normal Objective vital signs Vital Sign Date Time Temp Pulse Resp B/P (MAP) Pulse Ox O2 Delivery O2 Flow Rate FiO2 06/15/24 10:34 70 109/68 06/15/24 08:27 97.8 14 100 97.8 06/15/24 08:00 Room Air* 0 21 Total Intake and Output 06/14/24 06/14/24 06/15/24 15:00 23:00 07:00 Intake Total 100 ml 300 ml 650 ml Output Total 200 ml 550 ml Balance 100 ml 100 ml 100 ml medications Current Medications Medications Dose Ordered Sig/Cristofer Route Start Time Stop Time Status Last Admin Dose Admin Sodium Chloride 1,000 ml @ 75 mls/hr [id number] IV 06/11/24 15:30 06/14/24 22:44 75 MLS/HR Acetaminophen/ Hydrocodone Bitart 1 tab Q4HP PRN PO 06/11/24 15:30 Ondansetron HCl 4 mg Q4HP PRN IV 06/11/24 15:30 Enoxaparin Sodium 30 mg DAILY SC 06/12/24 10:00 06/15/24 10:34 30 MG Acetaminophen 650 mg Q6HP PRN PO 06/11/24 15:30 Pantoprazole Sodium 40 mg DAILY IV 06/12/24 10:00 06/15/24 10:34 40 MG Morphine Sulfate 1 mg Q4HPRN PRN IV 06/12/24 17:15 Metoprolol Tartrate 25 mg BID PO 06/12/24 22:00 06/15/24 10:34 25 MG Docusate Sodium 100 mg BID PO 06/12/24 22:00 06/15/24 10:33 100 MG Timolol Maleate 1 drop QAM EACHEYE 06/13/24 07:00 06/14/24 22:40 1 DROP Prednisolone Acetate 1 drop DAILY LEFTEYE 06/13/24 11:30 06/14/24 11:25 1 DROP Patient Own Medication 1 TID OP 06/13/24 14:00 06/15/24 06:49 1 Piperacillin Sod/ Tazobactam Sod 100 ml @ 25 mls/hr Q8H IV 06/13/24 18:00 06/15/24 10:34 25 MLS/HR Patient Own Medication 1 QPM OP 06/13/24 18:00 06/14/24 18:32 1 Prednisone 10 mg DAILY PO 06/14/24 10:00 06/15/24 10:33 10 MG Examination: GENERAL:Normal, HEENT:Normal, NECK:Normal, LUNGS:Normal, CVS:Normal, ABDOMEN:Normal, MSK:Normal, SKIN:Normal, NEURO:Normal, :Normal laboratory and microbiology Laboratory Tests 06/15/24 07:34 Test 06/15/24 07:34 Range/Units Serum Glucose 64 L 74-106 mg/dL Microbiology Date/Time Source Procedure Growth Status 06/11/24 16:00 Blood Blood Culture - Preliminary NO GROWTH AFTER 72 HOURS OF INCUBATION. Resulted Problem List/Assessment/Plan Problem List/Assessment/Plan #1 abd pain with gallstones/ acute pancreatitis: antibiotics, ppi, refused surgery #2 RA: cont steroids #3 htn #4 h/o cad/stent: echo #5 glaucoma #6 fecal impaction #7 functional quadriplegia- bed bound long dw daughter Shira- explained plan of care advance care plan- full code- time spent 19 mins Plan discussed with: Patient My Orders My Orders Orders - RYAN CORRAL MD Procedure Category Date Status Time Cleanse Wound With LAMONTE 06/14/24 In Process Wound Clean 15:47 * Dietary Consult CONS 06/14/24 Transmitted 15:51 Order Specialty LAMONTE 06/14/24 In Process Mattress 15:51 Dietary Evaluation Review Comments: Offer Doe BID, Ensure Enlive BID, upgrade diet to Mechanical soft, texture as tolerated Expected Outcomes/Goals: healed wounds. improved nutrition related lab values Date of Service: Jun 15, 2024 Billing Provider: RYAN CORRAL MD Common Visit Codes: [id number] INP/OBS CARE(HIGH) RYAN CORRAL MD Jun 15, 2024 13:19
[2024-06-15 13:25] LABS: Basophils # (auto) 0 10 ^3/uL (0-0.2); Eosinophils # (auto) 0 10 ^3/uL (0-0.8); Eosinophils % (auto) 0.2 % (0.0-7.0); Hematocrit 35.6 % (36.0-46.0); Hemoglobin 11.6 g/dL (12.2-16.2); Lymphocytes # (auto) 1.5 10 ^3/uL (0.4-5.4); Lymphocytes % (auto) 9.2 % (10.0-50.0); Mean Corpuscular Hemoglobin 27.3 pg (28.0-32.0); Mean Corpuscular Hgb Conc. 32.5 g/dL (32.0-36.0); Mean Corpuscular Volume 83.9 fL (80.0-100.0); Monocytes # (auto) 1.5 10 ^3/uL (0-1.3); Monocytes % (auto) 9.2 % (0.0-12.0); Neutrophils # (auto) 13.5 10 ^3/uL (1.6-8.6); Neutrophils % (auto) 81.4 % (37.0-80.0); Nucleated Red Blood Cells % 0.1 %; Platelet Count (auto) 392 10^3/uL (140-450); Red Blood Cells 4.24 10^6/uL (4.0-5.20); Red Cell Distribution Width 15.9 % (11.8-14.3); White Blood Cell 16.6 10^3/uL (4.4-10.8)
[2024-06-15] MEDS: metroNIDAZOLE 500 MG TAB PO SCH (16:13)
[2024-06-15] MEDS: Ensure Enlive Strawberry 8oz Bottle PO SCH (18:00)
[2024-06-15] MEDS: Juven Orange Powder PACKET 27.5gm PO SCH (18:00)
[2024-06-15] MEDS: ONDANSETRON HCL 4 MG/2 ML VIAL IV PRN (22:35)
[2024-06-15] MEDS: HYDROcodone-ACET 5/325MG TAB PO PRN (22:36)
[2024-06-16] VITALS (8 sets, daily range): BP systolic 117–132; BP diastolic 55–72; PULSE 62–79; RESP 16–21; TEMP 97.7–98.5; O2SAT 94–98
[2024-06-16] MEDS: PANTOPRAZOLE 40 MG TAB PO SCH (06:17)
[2024-06-16] MEDS: levoFLOXacin 250 MG TAB PO SCH (09:51)
--- NOTE | 2024-06-16 19:12 | DVHPN2 ---
Subjective Decreasing abdominal pain with fluidly bowel movements Reviewed: Care Plan, H&P, Labs, Medications, Previous Orders, Radiology, Other (Consultations) Changes from previous H/P or p: Changes Objective Vitals Vital Signs Date Time Temp Pulse Resp B/P (MAP) Pulse Ox O2 Delivery O2 Flow Rate FiO2 06/16/24 17:01 97.7 62 21 125/55 (78) 95 97.7 06/16/24 08:00 Room Air* 0 21 Intake/Output Intake and Output 06/16/24 07:00 Intake Total 950 ml Output Total 1000 ml Balance -50 ml Intake Oral 850 ml IV Total 100 ml Output Urine Total 1000 ml # Voids 3 General Appearance: Alert, Oriented X3, Cooperative, No acute distress Lungs: Clear to auscultation, Normal air movement Cardiovascular: Regular rate, Normal S1, Normal S2 Abdomen: Normal bowel sounds, Soft, Other (Diffuse mild tenderness) Genitourinary: Other (Kapoor's) Neuro: Normal speech, Cranial nerves 3-12 NL Skin: Other (Skin lesions over left knee and sacrum; present on admission) Psych/Mental Status: Mental status NL, Mood NL Medications Current Medications Medications Dose Ordered Sig/Cristofer Route Start Time Stop Time Status Last Admin Dose Admin Acetaminophen/ Hydrocodone Bitart 1 tab Q4HP PRN PO 06/11/24 15:30 06/15/24 22:36 1 TAB Ondansetron HCl 4 mg Q4HP PRN IV 06/11/24 15:30 06/16/24 06:17 4 MG Enoxaparin Sodium 30 mg DAILY SC 06/12/24 10:00 06/16/24 09:51 30 MG Acetaminophen 650 mg Q6HP PRN PO 06/11/24 15:30 Morphine Sulfate 1 mg Q4HPRN PRN IV 06/12/24 17:15 Metoprolol Tartrate 25 mg BID PO 06/12/24 22:00 06/16/24 09:50 25 MG Docusate Sodium 100 mg BID PO 06/12/24 22:00 06/16/24 09:50 100 MG Timolol Maleate 1 drop QAM EACHEYE 06/13/24 07:00 06/16/24 06:17 1 DROP Prednisolone Acetate 1 drop DAILY LEFTEYE 06/13/24 11:30 06/16/24 09:51 1 DROP Patient Own Medication 1 TID OP 06/13/24 14:00 06/16/24 14:48 1 Patient Own Medication 1 QPM OP 06/13/24 18:00 06/16/24 17:49 1 Prednisone 10 mg DAILY PO 06/14/24 10:00 06/16/24 09:51 10 MG Pantoprazole Sodium 40 mg DAILY@0600 PO 06/16/24 06:00 06/16/24 06:17 40 MG Metronidazole 500 mg Q8HR PO 06/15/24 14:00 06/16/24 14:47 500 MG Enteral Nutritional Formula 27.5 gm BIDWM PO 06/15/24 18:00 Enteral Nutritional Formula 240 ml BIDWM PO 06/15/24 18:00 Levofloxacin 250 mg DAILY PO 06/16/24 10:00 06/16/24 09:51 250 MG Laboratory Results Laboratory Tests 06/15/24 07:34 06/15/24 13:17 Urinalysis Test 06/11/24 20:50 Urine Color Yellow (Yellow) Urine Clarity Turbid (Clear) H Urine pH 5.0 (5.0-9.0) Urine Specific [place] 1.022 (1.001-1.035) Urine Protein Trace (Negative) H Urine Ketones Trace (Negative) Urine Blood Negative /uL (Negative) Urine Nitrite Negative (Negative) Urine Bilirubin Negative (Negative) Urine Urobilinogen Normal mg/dL (Negative) Urine Leukocyte Esterase Negative /uL (Negative) Urine RBC 1 /hpf (0 - 4) Urine WBC 2 /hpf (0 - 5) Urine Squamous Epithelial Cells Few /hpf (<5) Urine Bacteria None seen /hpf (None Seen) Urine Hyaline Casts Few /lpf (0 - 2) Urine Glucose Normal mg/dL (Normal) Microbiology Microbiology Date/Time Source Procedure Growth Status 06/11/24 16:00 Blood Blood Culture - Final NO GROWTH AFTER 5 DAYS OF INCUBATION. Complete Labs and/or images reviewed: Labs reviewed by me, Image(s) reviewed by me Assessment/Plan Assessment/Plan Covering Dr. Gonzalez: #Acute abdomen due to acute pancreatitis most likely secondary to gallbladder stones; patient refused surgery; continue IV antibiotics; continue PPIs; continue pain management as indicated; reviewed the available imaging studies including abdominal/pelvis CT and gallbladder ultrasound; continue monitoring Sepsis due to acute pancreatitis; continue IV antibiotics; continue monitoring #Rheumatoid arthritis; continue steroids; continue monitoring #Hypertensive heart disease with chronic diastolic heart failure; not in exacerbation; continue antihypertensive medications as indicated; evaluated by cardiology for cardiovascular risk \stratification; continue monitoring #CAD status post stenting; asymptomatic; continue current medical management; continue monitoring #Multiple wounds due to functional quadriplegia (bed-bound); wound care is following; continue pain management as indicated; continue monitoring #Glaucoma; continue eyedrops; continue monitoring #Fecal impaction; continue stool softener and laxative; continue monitoring #Malnutrition; dietary consulted; encouraged increased oral intake; on protein supplements; continue monitoring Goals of care discussed for 20 minutes; full code. Late Entry. This medical document was created using an electronic medical record system with computerized dictation system. Although this document has been carefully reviewed, there might still be some phonetic and typographical errors. These areas are purely typographical due to imperfections of the software programs, and do not reflect any compromise in the patient's medical care. Plan discussed with: Patient, Other (Nurse) Date of Service: Jun 16, 2024 Billing Provider: DARON PHELPS MD Common Visit Codes: [id number] INP/OBS CARE(HIGH) Secondary Visit Codes: [id number] CARE PLAN 30 MINUTES (20 minutes) DARON PHELPS MD Jun 16, 2024 19:12
[2024-06-17] VITALS (8 sets, daily range): BP systolic 107–125; BP diastolic 51–66; PULSE 69–91; RESP 16–19; TEMP 97.8–98.5; O2SAT 93–98
[2024-06-17 10:44] LABS: Basophils # (auto) 0 10 ^3/uL (0-0.2); Eosinophils # (auto) 0 10 ^3/uL (0-0.8); Eosinophils % (auto) 0.3 % (0.0-7.0); Hematocrit 36.8 % (36.0-46.0); Hemoglobin 11.9 g/dL (12.2-16.2); Lymphocytes # (auto) 2.4 10 ^3/uL (0.4-5.4); Lymphocytes % (auto) 14.6 % (10.0-50.0); Mean Corpuscular Hemoglobin 26.9 pg (28.0-32.0); Mean Corpuscular Hgb Conc. 32.3 g/dL (32.0-36.0); Mean Corpuscular Volume 83.2 fL (80.0-100.0); Monocytes # (auto) 1.1 10 ^3/uL (0-1.3); Monocytes % (auto) 6.7 % (0.0-12.0); Neutrophils % (auto) 78.4 % (37.0-80.0); Nucleated Red Blood Cells % 0.1 %; Platelet Count (auto) 369 10^3/uL (140-450); Red Blood Cells 4.43 10^6/uL (4.0-5.20); Red Cell Distribution Width 15.7 % (11.8-14.3); White Blood Cell 16.6 10^3/uL (4.4-10.8)
[2024-06-17 11:03] LABS: Alanine Aminotransferase 14 U/L (7-40); Anion Gap 6 (5-15); BUN/Creatinine Ratio 34.9 (10.0-20.0); Blood Urea Nitrogen 15 mg/dL (9-23); Calcium 9.2 mg/dL (8.7-10.4); Carbon Dioxide 24 mmol/L (20-31); Chloride 107 mmol/L (98-107); Glucose 101 mg/dL (74-106); Sodium 137 mmol/L (136-145)
[2024-06-17 11:04] LABS: Aspartate Aminotransferase 19 U/L (13-40); Bilirubin, Total 0.6 mg/dL (0.2-1.0)
[2024-06-17 11:10] LABS: Albumin 2.8 g/dL (3.2-4.8); Alkaline Phosphatase 118 U/L (46-116); Potassium 3.4 mmol/L (3.5-5.1)
--- NOTE | 2024-06-17 19:19 | DVHPN2 ---
Subjective Decreasing abdominal pain with fluidly bowel movements Reviewed: Care Plan, H&P, Labs, Medications, Previous Orders, Radiology, Other (Consultations) Changes from previous H/P or p: No Changes Objective Vitals Vital Signs Date Time Temp Pulse Resp B/P (MAP) Pulse Ox O2 Delivery O2 Flow Rate FiO2 06/17/24 16:57 97.9 86 18 124/66 (85) 95 97.9 06/17/24 08:00 Room Air* 0 21 Intake/Output Intake and Output 06/17/24 07:00 Intake Total 1190 ml Output Total 1500 ml Balance -310 ml Intake Oral 1190 ml Output Urine Total 1500 ml # Voids 2 # Bowel Movements 4 General Appearance: Alert, Oriented X3, Cooperative, No acute distress Lungs: Clear to auscultation, Normal air movement Cardiovascular: Regular rate, Normal S1, Normal S2 Abdomen: Normal bowel sounds, Soft, Other (Diffuse mild tenderness) Genitourinary: Other (Kapoor's) Neuro: Normal speech, Cranial nerves 3-12 NL Skin: Other (Skin lesions over left knee and sacrum; present on admission) Psych/Mental Status: Mental status NL, Mood NL Medications Current Medications Medications Dose Ordered Sig/Cristofer Route Start Time Stop Time Status Last Admin Dose Admin Acetaminophen/ Hydrocodone Bitart 1 tab Q4HP PRN PO 06/11/24 15:30 06/15/24 22:36 1 TAB Ondansetron HCl 4 mg Q4HP PRN IV 06/11/24 15:30 06/16/24 06:17 4 MG Enoxaparin Sodium 30 mg DAILY SC 06/12/24 10:00 06/17/24 10:59 30 MG Acetaminophen 650 mg Q6HP PRN PO 06/11/24 15:30 Morphine Sulfate 1 mg Q4HPRN PRN IV 06/12/24 17:15 Metoprolol Tartrate 25 mg BID PO 06/12/24 22:00 06/17/24 10:59 25 MG Docusate Sodium 100 mg BID PO 06/12/24 22:00 06/16/24 22:50 100 MG Timolol Maleate 1 drop QAM EACHEYE 06/13/24 07:00 06/17/24 06:32 1 DROP Prednisolone Acetate 1 drop DAILY LEFTEYE 06/13/24 11:30 06/17/24 10:57 1 DROP Patient Own Medication 1 TID OP 06/13/24 14:00 06/17/24 14:19 1 Patient Own Medication 1 QPM OP 06/13/24 18:00 06/17/24 17:21 1 Prednisone 10 mg DAILY PO 06/14/24 10:00 06/17/24 11:00 10 MG Pantoprazole Sodium 40 mg DAILY@0600 PO 06/16/24 06:00 06/17/24 06:32 40 MG Metronidazole 500 mg Q8HR PO 06/15/24 14:00 06/17/24 14:18 500 MG Enteral Nutritional Formula 27.5 gm BIDWM PO 06/15/24 18:00 06/17/24 17:39 27.5 GM Enteral Nutritional Formula 240 ml BIDWM PO 06/15/24 18:00 Levofloxacin 250 mg DAILY PO 06/16/24 10:00 06/17/24 10:57 250 MG Laboratory Results Laboratory Tests 06/17/24 10:29 Chemistry Test 06/17/24 10:29 Albumin 2.8 g/dL (3.2-4.8) L Calcium Level 9.2 mg/dL (8.7-10.4) Total Protein 6.0 g/dL (5.7-8.2) LFT Test 06/17/24 10:29 Alanine Aminotransferase (ALT) 14 U/L (7-40) Alkaline Phosphatase 118 U/L (46-116) H Aspartate Amino Transferase (AST) 19 U/L (13-40) Total Bilirubin 0.6 mg/dL (0.2-1.0) Urinalysis Test 06/11/24 20:50 Urine Color Yellow (Yellow) Urine Clarity Turbid (Clear) H Urine pH 5.0 (5.0-9.0) Urine Specific [place] 1.022 (1.001-1.035) Urine Protein Trace (Negative) H Urine Ketones Trace (Negative) Urine Blood Negative /uL (Negative) Urine Nitrite Negative (Negative) Urine Bilirubin Negative (Negative) Urine Urobilinogen Normal mg/dL (Negative) Urine Leukocyte Esterase Negative /uL (Negative) Urine RBC 1 /hpf (0 - 4) Urine WBC 2 /hpf (0 - 5) Urine Squamous Epithelial Cells Few /hpf (<5) Urine Bacteria None seen /hpf (None Seen) Urine Hyaline Casts Few /lpf (0 - 2) Urine Glucose Normal mg/dL (Normal) Microbiology Microbiology Date/Time Source Procedure Growth Status 06/16/24 21:44 Stool Stool Culture - Preliminary Resulted 06/16/24 21:44 Stool Shiga Toxin I & II - Final Resulted 06/11/24 16:00 Blood Blood Culture - Final NO GROWTH AFTER 5 DAYS OF INCUBATION. Complete Labs and/or images reviewed: Labs reviewed by me, Image(s) reviewed by me Assessment/Plan Assessment/Plan Covering Dr. Gonzalez: #Acute abdomen due to acute pancreatitis most likely secondary to gallbladder stones; patient refused surgery; continue IV antibiotics; continue PPIs; continue pain management as indicated; reviewed the available imaging studies including abdominal/pelvis CT and gallbladder ultrasound; continue monitoring #Sepsis due to acute pancreatitis; continue IV antibiotics; continue monitoring #Hypokalemia due to GI losses in the setting of developing diarrhea after stool softener/laxative treatment; to replace electrolytes as indicated; continue monitoring #Developing diarrhea; stool studies negative so far; most likely due to stool softener/laxative treatment in the setting of fecal impaction; continue monitoring #Rheumatoid arthritis; continue steroids; continue monitoring #Hypertensive heart disease with chronic diastolic heart failure; not in exacerbation; continue antihypertensive medications as indicated; evaluated by cardiology for cardiovascular risk stratification; continue monitoring #CAD status post stenting; asymptomatic; continue current medical management; continue monitoring #Multiple wounds due to functional quadriplegia (bed-bound); wound care is following; continue pain management as indicated; continue monitoring #Glaucoma; continue eyedrops; continue monitoring #Fecal impaction; continue stool softener and laxative; continue monitoring #Malnutrition; dietary consulted; encouraged increased oral intake; on protein supplements; continue monitoring Late Entry. This medical document was created using an electronic medical record system with computerized dictation system. Although this document has been carefully reviewed, there might still be some phonetic and typographical errors. These areas are purely typographical due to imperfections of the software programs, and do not reflect any compromise in the patient's medical care. Plan discussed with: Patient, Other (Nurse) My Orders Orders - DARON PHELPS MD Procedure Category Date Status Time Basic Metabolic Panel LAB 06/18/24 Verified 04:00 Complete Blood Count LAB 06/18/24 Verified 04:00 Magnesium LAB 06/18/24 Verified 04:00 Potassium Chloride PHA 06/17/24 Logged (Potassium Chloride). 19:30 Date of Service: Jun 17, 2024 Billing Provider: DARON PHELPS MD Common Visit Codes: [id number] INP/OBS CARE(HIGH) DARON PHELPS MD Jun 17, 2024 19:19
[2024-06-17] MEDS: POTASSIUM CHLORIDE 40 MEQ, LIDOCAINE 1% (LOCAL ANESTH.) 4 ML in SODIUM CHL 0.9% 250 ML IV ONE (20:11)
[2024-06-18] VITALS (8 sets, daily range): BP systolic 101–113; BP diastolic 44–60; PULSE 66–87; RESP 15–17; TEMP 97.6–99.1; O2SAT 95–98
[2024-06-18 05:43] LABS: Basophils # (auto) 0 10 ^3/uL (0-0.2); Basophils % (auto) 0.2 % (0.0-2.0); Eosinophils # (auto) 0.1 10 ^3/uL (0-0.8); Eosinophils % (auto) 0.5 % (0.0-7.0); Hematocrit 31.6 % (36.0-46.0); Hemoglobin 10.3 g/dL (12.2-16.2); Lymphocytes # (auto) 2.9 10 ^3/uL (0.4-5.4); Mean Corpuscular Hemoglobin 27.2 pg (28.0-32.0); Mean Corpuscular Hgb Conc. 32.7 g/dL (32.0-36.0); Mean Corpuscular Volume 83.2 fL (80.0-100.0); Monocytes % (auto) 7.6 % (0.0-12.0); Neutrophils # (auto) 9.1 10 ^3/uL (1.6-8.6); Neutrophils % (auto) 69.7 % (37.0-80.0); Platelet Count (auto) 377 10^3/uL (140-450); Red Blood Cells 3.79 10^6/uL (4.0-5.20); Red Cell Distribution Width 15.6 % (11.8-14.3); White Blood Cell 13.1 10^3/uL (4.4-10.8)
[2024-06-18 05:57] LABS: Potassium 4.2 mmol/L (3.5-5.1); Sodium 139 mmol/L (136-145)
[2024-06-18 05:58] LABS: Anion Gap 6 (5-15); Calcium 9.1 mg/dL (8.7-10.4); Carbon Dioxide 24 mmol/L (20-31)
[2024-06-18 06:03] LABS: BUN/Creatinine Ratio 43.6 (10.0-20.0); Blood Urea Nitrogen 17 mg/dL (9-23); Glucose 81 mg/dL (74-106)
[2024-06-18 06:23] LABS: Chloride 109 mmol/L (98-107); Magnesium 1.3 mg/dL (1.6-2.6)
--- NOTE | 2024-06-18 16:45 | DVHPN2 ---
Subjective Decreasing abdominal pain with fluidly bowel movements Reviewed: Care Plan, H&P, Labs, Medications, Previous Orders, Radiology, Other (Consultations) Changes from previous H/P or p: No Changes Objective Vitals Vital Signs Date Time Temp Pulse Resp B/P (MAP) Pulse Ox O2 Delivery O2 Flow Rate FiO2 06/18/24 13:49 80 110/53 06/18/24 13:00 98.2 15 98 98.2 06/18/24 08:00 Room Air* 0 21 Intake/Output Intake and Output 06/18/24 07:00 Intake Total 1020 ml Output Total 1362 ml Balance -342 ml Intake Oral 1020 ml Output Urine Total 1360 ml Stool Total 2 ml # Voids 2 General Appearance: Alert, Oriented X3, Cooperative, No acute distress Lungs: Clear to auscultation, Normal air movement Cardiovascular: Regular rate, Normal S1, Normal S2 Abdomen: Normal bowel sounds, Soft, Other (Diffuse mild tenderness) Genitourinary: Other (Kapoor's) Neuro: Normal speech, Cranial nerves 3-12 NL Skin: Other (Skin lesions over left knee and sacrum; present on admission) Psych/Mental Status: Mental status NL, Mood NL Medications Current Medications Medications Dose Ordered Sig/Cristofer Route Start Time Stop Time Status Last Admin Dose Admin Acetaminophen/ Hydrocodone Bitart 1 tab Q4HP PRN PO 06/11/24 15:30 06/15/24 22:36 1 TAB Ondansetron HCl 4 mg Q4HP PRN IV 06/11/24 15:30 06/16/24 06:17 4 MG Enoxaparin Sodium 30 mg DAILY SC 06/12/24 10:00 06/18/24 12:49 30 MG Acetaminophen 650 mg Q6HP PRN PO 06/11/24 15:30 Morphine Sulfate 1 mg Q4HPRN PRN IV 06/12/24 17:15 Metoprolol Tartrate 25 mg BID PO 06/12/24 22:00 06/18/24 12:49 25 MG Docusate Sodium 100 mg BID PO 06/12/24 22:00 06/18/24 12:48 100 MG Timolol Maleate 1 drop QAM EACHEYE 06/13/24 07:00 06/18/24 06:16 1 DROP Prednisolone Acetate 1 drop DAILY LEFTEYE 06/13/24 11:30 06/18/24 12:47 1 DROP Patient Own Medication 1 TID OP 06/13/24 14:00 06/18/24 14:00 1 Patient Own Medication 1 QPM OP 06/13/24 18:00 06/17/24 17:21 1 Prednisone 10 mg DAILY PO 06/14/24 10:00 06/18/24 12:48 10 MG Pantoprazole Sodium 40 mg DAILY@0600 PO 06/16/24 06:00 06/18/24 06:16 40 MG Metronidazole 500 mg Q8HR PO 06/15/24 14:00 06/18/24 15:04 500 MG Enteral Nutritional Formula 27.5 gm BIDWM PO 06/15/24 18:00 06/18/24 12:45 27.5 GM Enteral Nutritional Formula 240 ml BIDWM PO 06/15/24 18:00 06/18/24 08:00 240 ML Levofloxacin 250 mg DAILY PO 06/16/24 10:00 06/18/24 12:48 250 MG Laboratory Results Laboratory Tests 06/18/24 05:00 Chemistry Test 06/18/24 05:00 Calcium Level 9.1 mg/dL (8.7-10.4) Magnesium Level 1.3 mg/dL (1.6-2.6) L Urinalysis Test 06/11/24 20:50 Urine Color Yellow (Yellow) Urine Clarity Turbid (Clear) H Urine pH 5.0 (5.0-9.0) Urine Specific Reyno 1.022 (1.001-1.035) Urine Protein Trace (Negative) H Urine Ketones Trace (Negative) Urine Blood Negative /uL (Negative) Urine Nitrite Negative (Negative) Urine Bilirubin Negative (Negative) Urine Urobilinogen Normal mg/dL (Negative) Urine Leukocyte Esterase Negative /uL (Negative) Urine RBC 1 /hpf (0 - 4) Urine WBC 2 /hpf (0 - 5) Urine Squamous Epithelial Cells Few /hpf (<5) Urine Bacteria None seen /hpf (None Seen) Urine Hyaline Casts Few /lpf (0 - 2) Urine Glucose Normal mg/dL (Normal) Microbiology Microbiology Date/Time Source Procedure Growth Status 06/16/24 21:44 Stool Stool Culture - Preliminary Resulted 06/16/24 21:44 Stool Shiga Toxin I & II - Final Resulted 06/11/24 16:00 Blood Blood Culture - Final NO GROWTH AFTER 5 DAYS OF INCUBATION. Complete Labs and/or images reviewed: Labs reviewed by me, Image(s) reviewed by me Assessment/Plan Assessment/Plan Covering Dr. Gonzalez: #Acute abdomen due to acute pancreatitis most likely secondary to gallbladder stones; patient refused surgery; continue IV antibiotics; continue PPIs; continue pain management as indicated; reviewed the available imaging studies including abdominal/pelvis CT and gallbladder ultrasound; continue monitoring #Sepsis with leukocytosis due to acute pancreatitis; continue IV antibiotics; today for the 1st time white blood cell count is below 16933; continue monitoring #Hypokalemia and hypomagnesemia due to GI losses in the setting of developing diarrhea after stool softener/laxative treatment; to replace electrolytes as indicated; continue monitoring #Developing diarrhea; stool studies negative so far; most likely due to stool softener/laxative treatment in the setting of fecal impaction; continue monitoring #Rheumatoid arthritis; continue steroids; continue monitoring #Hypertensive heart disease with chronic diastolic heart failure; not in exacerbation; continue antihypertensive medications as indicated; evaluated by cardiology for cardiovascular risk stratification; continue monitoring #CAD status post stenting; asymptomatic; continue current medical management; continue monitoring #Multiple wounds due to functional quadriplegia (bed-bound); wound care is following; continue pain management as indicated; continue monitoring #Glaucoma; continue eyedrops; continue monitoring #Fecal impaction; continue stool softener and laxative; continue monitoring #Malnutrition; dietary consulted; encouraged increased oral intake; on protein supplements; continue monitoring Possible discharge tomorrow. . Late Entry. This medical document was created using an electronic medical record system with computerized dictation system. Although this document has been carefully reviewed, there might still be some phonetic and typographical errors. These areas are purely typographical due to imperfections of the software programs, and do not reflect any compromise in the patient's medical care. Plan discussed with: Patient, Other (Nurse) My Orders Orders - DARON PHELPS MD Procedure Category Date Status Time Magnesium Corby PHA 06/18/24 Verified 17:00 Date of Service: Jun 18, 2024 Billing Provider: DARON PHELPS MD Common Visit Codes: [id number] INP/OBS CARE(HIGH) DARON PHELPS MD Jun 18, 2024 16:45
[2024-06-18] MEDS: MAGNESIUM SULFATE 1GM/100ML 100 ML IV ONE ×2 (18:25→22:32)
[2024-06-19 01:00] VITALS: BP 99/47; PULSE 80; RESP 16; TEMP 97.9; O2SAT 96
[2024-06-19 05:00] VITALS: BP 117/54; PULSE 79; RESP 16; TEMP 98.3; O2SAT 96
[2024-06-19 06:29] LABS: Chloride 107 mmol/L (98-107); Potassium 4.4 mmol/L (3.5-5.1); Sodium 138 mmol/L (136-145)
[2024-06-19 06:30] LABS: Anion Gap 6 (5-15); Calcium 9.3 mg/dL (8.7-10.4); Carbon Dioxide 25 mmol/L (20-31)
[2024-06-19 06:35] LABS: Glucose 97 mg/dL (74-106)
[2024-06-19 06:36] LABS: Magnesium 1.8 mg/dL (1.6-2.6)
[2024-06-19 06:56] LABS: Basophils # (auto) 0 10 ^3/uL (0-0.2); Basophils % (auto) 0.2 % (0.0-2.0); Eosinophils # (auto) 0 10 ^3/uL (0-0.8); Eosinophils % (auto) 0.1 % (0.0-7.0); Hematocrit 31.4 % (36.0-46.0); Hemoglobin 10.3 g/dL (12.2-16.2); Lymphocytes # (auto) 1.8 10 ^3/uL (0.4-5.4); Lymphocytes % (auto) 13.1 % (10.0-50.0); Mean Corpuscular Hgb Conc. 32.9 g/dL (32.0-36.0); Monocytes # (auto) 0.8 10 ^3/uL (0-1.3); Monocytes % (auto) 5.6 % (0.0-12.0); Neutrophils # (auto) 11.3 10 ^3/uL (1.6-8.6); Nucleated Red Blood Cells % 0.1 %; Platelet Count (auto) 401 10^3/uL (140-450); Red Blood Cells 3.83 10^6/uL (4.0-5.20); Red Cell Distribution Width 15.6 % (11.8-14.3)
[2024-06-19 07:05] LABS: BUN/Creatinine Ratio 71.8 (10.0-20.0); Blood Urea Nitrogen 28 mg/dL (9-23)
[2024-06-19 08:30] VITALS: BP 108/52; PULSE 76; RESP 17; TEMP 98.7; O2SAT 99
[2024-06-19] MEDS ORDERED: PANT40TA2 PO (12:43)
[2024-06-19] MEDS ORDERED: METR-344 PO (12:43)
[2024-06-19] MEDS ORDERED: LEVO500T91 PO (12:43)
--- NOTE | 2024-06-19 13:14 | DVHDS ---
DATE OF DISCHARGE: 06/19/2024 HISTORY OF PRESENT ILLNESS: The patient is an 83-year-old lady who was admitted with history of abdominal pain, nausea and vomiting. The patient has previous history of rheumatoid arthritis, hypertension. HOSPITAL COURSE: The patient had a CT of abdomen and pelvis that showed evidence of inflammation adjacent to the pancreas along with cholelithiasis and large dense stool. The patient had a gallbladder ultrasound that showed evidence of cholelithiasis. The patient was seen in surgery consult by Dr. Seaman, but repeatedly refused to undergo surgery. The patient had an echocardiogram done that showed ejection fraction of 55%-60%. The patient's blood cultures have been negative. The patient will now be discharged home. She will resume her home medications except for hydrochlorothiazide and lisinopril and will also be on Levaquin 500 mg daily for 7 days and Flagyl 500 mg t.i.d. for 7 days. She will have a Kapoor catheter and home health for wound care and Kapoor care. FINAL DIAGNOSES: Therefore, * Abdominal pain with gallstones with acute pancreatitis with likely systemic inflammatory response syndrome/sepsis. * Rheumatoid arthritis. * Hypertension. * History of coronary artery disease with stent. * Functional quadriplegia. * Fecal impaction. * Glaucoma. Time spent in discharge planning and review of plan with the patient and nursing was 39 minutes. MD LUCA Rodriguez/BLAIR TID: [id number] RECEIPT: [id number]
[2024-06-19 13:19] VITALS: BP 100/49; PULSE 89; TEMP 37.1
[2024-06-19 13:30] VITALS: BP 106/56; PULSE 76; RESP 17; TEMP 98.1; O2SAT 97
[2024-06-19 16:12] VITALS: BP 105/60; PULSE 74; RESP 17; TEMP 98.2; O2SAT 97
== END 2024-06-19 22:00 | disposition home health service (06) | DRG 871 ==
LOC: ER 06:24 → EDBD 06:24 → OVERFLOW 15:25 → WEST WING 15:41 → OVERFLOW 15:41 → WEST WING 22:00
PROVIDERS: ADMIT Registered Nurse; ATTEND Internal Medicine
PROC: 05H933Z Insertion of Infusion Device into Right Brachial Vein, Percutaneous Approach (ICD-10-PCS; principal; 2024-06-13)
PROC: B54MZZA Ultrasonography of Right Upper Extremity Veins, Guidance (ICD-10-PCS; 2024-06-13)
DX: A41.9 Sepsis, unspecified organism (principal); K85.10 Biliary acute pancreatitis without necrosis or infection; R53.2 Functional quadriplegia; I50.32 Chronic diastolic (congestive) heart failure; E46 Unspecified protein-calorie malnutrition; Z68.1 Body mass index [BMI] 19.9 or less, adult; E78.5 Hyperlipidemia, unspecified; I25.10 Atherosclerotic heart disease of native coronary artery without angina pectoris; M06.9 Rheumatoid arthritis, unspecified; K56.41 Fecal impaction; E87.6 Hypokalemia; I11.0 Hypertensive heart disease with heart failure; R62.7 Adult failure to thrive; I45.10 Unspecified right bundle-branch block; E83.42 Hypomagnesemia; H40.89 Other specified glaucoma; Z74.01 Bed confinement status; Z96.653 Presence of artificial knee joint, bilateral; Z95.5 Presence of coronary angioplasty implant and graft
CPT/HCPCS: 36415; 71045; 74176; 76705; 80048; 80053; 80061; 80202; 81001; 83036; 83605; 83690; 83735; 84132; 85025; 85610; 85730; 87040; 87045; 87427; 93005; 93306; G0378; J2003; J2405; J2470; J2543; J3480; J3490